=== PATIENT | male | born 1940 | race Caucasian/White ===

== ENCOUNTER 2016-06-21 13:55 | Inpatient (IN) | payer MEDICAID, OTHER ==
[~2016-06-21] VITALS: Ht 172.7 cm; Wt 81.0 kg
[~2016-06-21 13:55] MED LIST: ASPI81TA3 PO; ATOR20TA38 PO; Carvedilol PO; HYDR10TA36 PO; LISI-313 PO
[2016-06-21] MEDS ORDERED: FUROSEMIDE 40 MG INJ IV STA (17:22)
[2016-06-21] MEDS ORDERED: NITROGLYCERIN 2% 1 GM OINT PKT TD STA (17:22)
[2016-06-21] MEDS ORDERED: ASPIRIN 81 MG TAB PO STA (17:22)
[2016-06-21 18:06] LABS: ADD SCAN DIFF NO
[2016-06-21 18:08] LABS: BASOPHILS % 0.2 % (0.0-2.0); EOSINOPHILS # 0.1 10^3/ul (0.0-0.5); EOSINOPHILS % 1.7 % (0.0-7.0); HEMATOCRIT 37.3 % (42.0-52.0); HEMOGLOBIN 12.4 g/dl (14.0-18.0); LYMPHOCYTES # 1.2 10^3/ul (0.8-2.9); LYMPHOCYTES % 28.4 % (15.0-51.0); MEAN CORPUSCULAR HEMOGLOBIN 29.2 pg (29.0-33.0); MEAN CORPUSCULAR HGB CONC 33.2 g/dl (32.0-37.0); MEAN PLATELET VOLUME 9.2 fl (7.4-10.4); MONOCYTE # 0.5 10^3/ul (0.3-0.9); MONOCYTES % 11.3 % (0.0-11.0); NEUTROPHIL # 2.4 10^3/ul (1.6-7.5); NEUTROPHILS % 58.2 % (39.0-77.0); PLATELET COUNT 178 10^3/UL (140-415); RED BLOOD COUNT 4.24 10^6/ul (4.70-6.10); WHITE BLOOD COUNT 4.1 10^3/ul (4.8-10.8)
[2016-06-21 18:21] LABS: INR 0.99; PROTIME 13.1 Sec (12.2-14.2)
[2016-06-21 18:22] LABS: CHLORIDE 106 mmol/L (97-110); PARTIAL THROMBOPLASTIN TIME 26.7 Sec (25.0-35.0); SODIUM 144 mmol/L (135-144)
[2016-06-21 18:23] LABS: POTASSIUM 4.1 mmol/L (3.5-5.1)
--- NOTE | 2016-06-21 18:24 | RADRPT ---
PROCEDURE: XR Chest. CLINICAL INDICATION: Chest pain. TECHNIQUE: Single frontal view of the chest was obtained COMPARISON: 05/07/2015. FINDINGS: Cardiomegaly. Pulmonary vascular congestion and patchy air space disease at the mid lungs and lung bases. There is no pleural effusion or pneumothorax. IMPRESSION: Cardiomegaly and mild failure. RPTAT: [facility] Physician Kwasi Date Time Electronically viewed and signed by Carolann York Physician on 06/21/2016 18:24 RS/
[2016-06-21 18:25] LABS: CREATININE 0.83 mg/dl (0.61-1.24)
[2016-06-21 18:26] LABS: ANION GAP 16 (8-16); BLOOD UREA NITROGEN 16 mg/dl (7-20); CALCIUM 9.3 mg/dl (8.4-10.2); CARBON DIOXIDE 26 mmol/L (21-31); GLUCOSE 93 mg/dl (70-220)
--- NOTE | 2016-06-21 18:27 | ERA ---
ER Documentation Chief Complaint Date/Time DATE: 06/21/16 TIME: 18:24 Chief Complaint CHEST PAIN WITH SOB SINCE THIS AM HPI 75-year-old male history of cardiomyopathy, cardiac disease with an ejection fraction of 20-30% who presents with chest pain and shortness of breath. He states this morning he has noted lower extremity swelling, PND, orthopnea. Patient also describes mild chest pressure that is 2 out of 10 and nonradiating. No fevers chills or cough, no pleuritic pain. ROS All systems reviewed and are negative except as per history of present illness. Medications Home Meds Active Scripts Aspirin (Aspirin) 81 Mg Chew, 81 MG PO DAILY for 30 Days, TAB Prov:KASSIE LONG 05/09/15 Reported Medications Atorvastatin Calcium* (Atorvastatin Calcium*) 20 Mg Tablet, 20 MG PO QHS, #30 TAB 06/21/16 Carvedilol* (Carvedilol*) 3.125 Mg Tablet, 3.125 MG PO BID, #60 TAB 06/21/16 Tramadol Hcl* (Ultram*) 50 Mg Tablet, 50 MG PO Q6H Y for PAIN, TAB 06/21/16 Furosemide* (Furosemide*) 20 Mg Tablet, 20 MG PO DAILY, #60 TAB 06/21/16 Lorazepam* (Lorazepam*) 1 Mg Tablet, 1 MG PO HS, #30 TAB 06/21/16 Lisinopril* (Lisinopril*) 10 Mg Tablet, 10 MG PO DAILY, #30 TAB 06/21/16 Discontinued Scripts Lisinopril* (Lisinopril*) 5 Mg Tablet, 5 MG PO DAILY, #30 TAB Prov:KASSIE LONG 05/11/15 Hydralazine Hcl* (Apresoline*) 10 Mg Tab, 10 MG PO Q8 for 30 Days, TAB Prov:REGKASSIE PETTIT 05/09/15 Atorvastatin Calcium* (Atorvastatin Calcium*) 20 Mg Tab, 40 MG PO HS for 30 Days , TAB Prov:KASSIE LONG 05/09/15 [Carvedilol] 3.125 MG TAB No Conflict Check, 3.125 MG PO BID for 30 Days, TAB Prov:KASSIE LNOG 05/09/15 Allergies Allergies: Coded Allergies: No Known Allergy (Unverified , 06/21/16) PMhx/Soc History of Surgery: Yes (PT DOES NOT RECALL NAME OF PROCEDURE) Anesthesia Reaction: No Hx Neurological Disorder: No Hx Respiratory Disorders: No Hx Cardiac Disorders: Yes (STEMI, HTN) Hx Psychiatric Problems: No Hx Miscellaneous Medical Probl: No Hx Alcohol Use: No (DENIES) Hx Substance Use: No (DENIES) Hx Tobacco Use: No (DENIES) Smoking Status: Unknown if ever smoked FmHx Family History: No diabetes Physical Exam Vitals Vital Signs Date Time Temp Pulse Resp B/P Pulse Ox O2 Delivery O2 Flow Rate FiO2 06/21/16 14:00 Nasal Cannula 2 06/21/16 13:56 98.0 86 26 140/98 100 Physical Exam General: Well developed, well nourished, no acute distress Head: Normocephalic, atraumatic. Eyes: Pupils equally reactive, EOM intact ENT: Moist mucous membranes Neck: Supple, no lymphadenopathy Respiratory: Rales at the bases bilaterally without respiratory distress Cardiovascular: RRR, no murmurs, rubs, or gallops Abdominal: Soft, non-tender, non-distended, no peritoneal signs : Deferred MSK: Bilateral lower extremity pitting edema, no unilateral swelling, 5/5 strength Neurologic: Alert and oriented, moving all extremities, normal speech, no focal weakness, no cerebellar signs Skin: No rash Psych: Normal mood Result Diagram: 06/21/16 1745 06/21/16 1745 Results 24 hrs Laboratory Tests Test 06/21/16 17:45 Activated Partial Thromboplast Time 26.7Sec Anion Gap 16 B-Type Natriuretic Peptide 147PG/ML Basophils # 0.010^3/ul Basophils % 0.2% Blood Urea Nitrogen 16mg/dl Calcium Level 9.3mg/dl Carbon Dioxide Level 26mmol/L Chloride Level 106mmol/L Creatinine 0.83mg/dl Eosinophils # 0.110^3/ul Eosinophils % 1.7% Glucose Level 93mg/dl Hematocrit 37.3% Hemoglobin 12.4g/dl INR International Normalized Ratio 0.99 Lymphocytes # 1.210^3/ul Lymphocytes % 28.4% Mean Corpuscular Hemoglobin 29.2pg Mean Corpuscular Hemoglobin Concent 33.2g/dl Mean Corpuscular Volume 88.0fl Mean Platelet Volume 9.2fl Monocytes # 0.510^3/ul Monocytes % 11.3% Neutrophils # 2.410^3/ul Neutrophils % 58.2% Nucleated Red Blood Cells # 0.010^3/ul Nucleated Red Blood Cells % 0.0/100WBC Platelet Count 40428^3/UL Potassium Level 4.1mmol/L Prothrombin Time 13.1Sec Prothrombin Time Ratio 1.0 Red Blood Count 4.2410^6/ul Red Cell Distribution Width 13.0% Sodium Level 144mmol/L Troponin I < 0.012ng/ml White Blood Count 4.110^3/ul Current Medications Medications (Trade) Dose Ordered Sig/Rafiq Route PRN Reason Start Time Stop Time Status Last Admin Dose Admin Aspirin (Aspirin) 162 mg ONCE STAT PO 06/21/16 17:22 06/21/16 17:23 DC 06/21/16 17:54 Nitroglycerin (Nitroglycerin 2% Oint) 1 inch ONCE STAT TD 06/21/16 17:22 06/21/16 17:23 DC Furosemide (Lasix) 40 mg ONCE STAT IV 06/21/16 17:22 06/21/16 17:23 DC 06/21/16 17:55 Procedures/MDM EKG, MONITORS, & DIAGNOSTIC IMAGING: EKG: I reviewed and interpreted a 12-lead EKG. Rhythm: Normal sinus rhythm Ectopy: None Intervals: No abnormalities ST segments: No elevations or depressions T waves: No contiguous inversions Repeat EKG: EKG: I reviewed and interpreted a 12-lead EKG. Rhythm: Normal sinus rhythm Ectopy: None Intervals: No abnormalities ST segments: No elevations or depressions T waves: No contiguous inversions Chest x-ray: I reviewed and interpreted a 1 view of the chest Mediastinum: No enlargement Cardiac silhouette: cardiomegaly Airspace: Interstitial process consistent with pulmonary edema Bones: No evidence of fracture LAB INTERPRETATION: Negative troponin MEDICAL DECISION MAKING: The patient's history, physical exam and clinical presentation is concerning for possible cardiogenic etiology and acute coronary syndrome and likely decompensated congestive heart failure Based on the patient's clinical exam and history and risk factors, I have a much lower clinical concern for pulmonary embolism, acute aortic dissection, pneumothorax, pneumonia, cardiac tamponade HEART Score: 7 MACE Rate: 65 percent Shared Decision Making: We had a conversation regarding risk stratification, MACE rate, and the risks, benefits, alternatives of disposition planning options. Disposition planning: Patient is significantly high risk and will benefit from inpatient hospitalization. ER COURSE: The patient was given aspirin, nitro paste held given normal blood pressure no respiratory distress, Lasix provided. Patient will benefit from inpatient auscultation. Chest pain is controlled. I kept the patient and/or family informed of laboratory and diagnostic imaging results throughout the emergency room course. DISPOSITION PLAN: Telemetry admission for management of decompensated congestive heart failure CONSULTATION: Accepting care team and consultations: I discussed the current laboratory data, diagnostic imaging and emergency care provided. Admitting team: Dr. Mata Admitting team indication: Insurance directed Departure Diagnosis: Primary Impression: Acute CHF Qualified Code: I50.21 - Acute systolic congestive heart failure Additional Impression: Chest pain Qualified Code: R07.9 - Chest pain, unspecified type Condition: Stable LEXIE ROMANO MD Jun 21, 2016 18:27
[2016-06-21 18:35] LABS: B-TYPE NATRIURETIC PEPTIDE 147 PG/ML (0-125)
[2016-06-21] MEDS ORDERED: LISI10TA2 PO (18:35)
[2016-06-21] MEDS ORDERED: FURO20TA3 PO (18:37)
[2016-06-21] MEDS ORDERED: LORA1TAB PO (18:37)
[2016-06-21] MEDS ORDERED: TRAM-40 PO (18:38)
[2016-06-21] MEDS ORDERED: CARV3.1260 PO (18:38)
[2016-06-21] MEDS ORDERED: ATOR20TA38 PO (18:39)
[2016-06-21 18:59] LABS: TROPONIN-I < 0.012 ng/ml (0.00-0.12)
[2016-06-21] MEDS ORDERED: ONDANSETRON 4 MG INJ IV PRN ×2 (19:30→20:00)
[2016-06-21] MEDS ORDERED: ACETAMINOPHEN 325 MG TAB PO PRN ×2 (19:30→20:00)
[2016-06-21] MEDS ORDERED: LORAZEPAM 2 MG INJ IV PRN (20:00)
[2016-06-21] MEDS ORDERED: morphine 2 MG INJ IV PRN (20:00)
[2016-06-21] MEDS ORDERED: NITROGLYCERIN (SL) 0.4 MG TAB SL PRN (20:00)
[2016-06-21] MEDS ORDERED: hydrALAzine 20 MG INJ IV PRN (20:00)
[2016-06-21] MEDS ORDERED: MAGNESIUM HYDROXIDE 30ML CUP PO PRN (20:00)
[2016-06-21] MEDS ORDERED: DOCUSATE SODIUM 100 MG CAP PO PRN (20:00)
[2016-06-21] MEDS ORDERED: ALBUTEROL/IPRATROPIUM (NEB) 3 ML AMP HHN PRN (20:00)
[2016-06-21] MEDS ORDERED: NA PHOSPHATE/BIPHOS 133 ML ENEMA PR PRN (20:00)
[2016-06-21] MEDS ORDERED: NACL 0.9% 3 ML SYG IV SCH (20:00)
[2016-06-21] MEDS ORDERED: HYDROCODONE/APAP (5/325) TAB PO PRN (20:00)
[2016-06-21] MEDS ORDERED: traMADol 50 MG TAB PO PRN (20:00)
[2016-06-21 20:34] LABS: CREATINE KINASE 55 IU/L (23-200)
[2016-06-21 20:46] LABS: CK-MB 0.63 ng/ml (0.0-2.4)
[2016-06-21 20:49] LABS: TROPONIN-I < 0.012 ng/ml (0.00-0.12)
[2016-06-21] MEDS: LORAZEPAM 1 MG TAB PO SCH (21:00)
[2016-06-21] MEDS: ATORVASTATIN 20 MG TAB PO SCH (22:00)
[2016-06-21] MEDS: HEPARIN 5,000 UNIT/0.5 ML SYG SC SCH (22:01)
[2016-06-22] VITALS (13 sets, daily range): BP systolic 84–145; BP diastolic 48–71; PULSE 50–72; RESP 18–20; TEMP 98
[2016-06-22 03:51] LABS: CREATINE KINASE 48 IU/L (23-200)
[2016-06-22 04:06] LABS: CK-MB 0.49 ng/ml (0.0-2.4); TROPONIN-I < 0.012 ng/ml (0.00-0.12)
[2016-06-22] MEDS: PANTOPRAZOLE (EC) 40 MG TAB PO SCH ×2 (05:36→06:00)
[2016-06-22] MEDS ORDERED: FUROSEMIDE 20 MG TAB PO SCH (06:00)
[2016-06-22 08:02] LABS: CREATINE KINASE 44 IU/L (23-200)
[2016-06-22 08:09] LABS: CHOL/HDL RATIO 4.6 RATIO
[2016-06-22 08:11] LABS: CK-MB 0.53 ng/ml (0.0-2.4); TROPONIN-I < 0.012 ng/ml (0.00-0.12)
[2016-06-22 08:52] LABS: THYROID STIMULATING HORMONE 0.692 MIU/L (0.465-4.680)
[2016-06-22 09:07] LABS: ADD SCAN DIFF NO
[2016-06-22 09:30] LABS: BASOPHILS % 0.6 % (0.0-2.0); EOSINOPHILS # 0.1 10^3/ul (0.0-0.5); EOSINOPHILS % 2.5 % (0.0-7.0); HEMATOCRIT 38.2 % (42.0-52.0); HEMOGLOBIN 12.7 g/dl (14.0-18.0); LYMPHOCYTES # 1.1 10^3/ul (0.8-2.9); MEAN CORPUSCULAR HEMOGLOBIN 29.5 pg (29.0-33.0); MEAN CORPUSCULAR HGB CONC 33.2 g/dl (32.0-37.0); MEAN CORPUSCULAR VOLUME 88.8 fl (82.0-101.0); MEAN PLATELET VOLUME 9.5 fl (7.4-10.4); MONOCYTE # 0.4 10^3/ul (0.3-0.9); MONOCYTES % 10.9 % (0.0-11.0); NEUTROPHIL # 1.7 10^3/ul (1.6-7.5); NEUTROPHILS % 52.7 % (39.0-77.0); PLATELET COUNT 172 10^3/UL (140-415); RED CELL DISTRIBUTION WIDTH 13.2 % (11.5-14.5); WHITE BLOOD COUNT 3.2 10^3/ul (4.8-10.8)
[2016-06-22] MEDS: ASPIRIN (EC) 325 MG TAB PO SCH (09:34)
[2016-06-22 09:35] LABS: CREATININE 0.74 mg/dl (0.61-1.24)
[2016-06-22] MEDS: LISINOPRIL 10 MG TAB PO SCH (09:35)
[2016-06-22 09:36] LABS: CALCIUM 8.9 mg/dl (8.4-10.2); MAGNESIUM 2.1 mg/dl (1.7-2.5); PHOSPHORUS 3.2 mg/dl (2.5-4.9)
[2016-06-22] MEDS: HEPARIN 5,000 UNIT/0.5 ML SYG SC SCH ×2 (09:39→21:20)
[2016-06-22] MEDS ORDERED: SENNA/DOCUSATE NA (8.6MG/50MG) TAB PO PRN (12:00)
[2016-06-22] MEDS: FUROSEMIDE 40 MG INJ IV SCH ×2 (12:51→20:00)
--- NOTE | 2016-06-22 13:24 | PN ---
Date/Time of Note Date/Time of Note DATE: 06/22/16 TIME: 13:21 Assessment/Plan VTE Prophylaxis VTE Prophylaxis Intervention: LMWH Lines/Catheters IV [facility] Urinary Cath still in place: No Assessment/Plan Chief Complaint/Hosp Course A/P 1- Ac on Chr decompensated systolic chf; stable, cont lasix. 2- Chr ischemic cardiomyopathy 3- Chr CAD/ mid lad- chr occlusion. medical management 4- Leucopenia, etio? Problems: Subjective 24 Hr Interval Summary Free Text/Dictation s- feels better. less edema/dyspnea. stated that he's regular with his meds/ diet. Exam/Review of Systems Vital Signs Vitals Vital Signs Date Time Temp Pulse Resp B/P Pulse Ox O2 Delivery O2 Flow Rate FiO2 06/22/16 12:23 60 06/22/16 12:01 98.2 20 113/64 99 06/22/16 03:05 Room Air 06/21/16 14:00 2 Exam Respiratory: clear to auscultation Cardiovascular: regular rate and rhythm Gastrointestinal: non-tender, soft Results Result Diagram: 06/22/16 0700 06/22/16 0700 Results 24 hrs Laboratory Tests Test 06/21/16 17:45 06/21/16 20:12 06/22/16 03:15 06/22/16 07:00 Activated Partial Thromboplast Time 26.7 Anion Gap 16 18 H B-Type Natriuretic Peptide 147 H Basophils # 0.0 0.0 Basophils % 0.2 0.6 Blood Urea Nitrogen 16 15 Calcium Level 9.3 8.9 Carbon Dioxide Level 26 25 Chloride Level 106 104 Creatinine 0.83 0.74 Eosinophils # 0.1 0.1 Eosinophils % 1.7 2.5 Glucose Level 93 92 Hematocrit 37.3 L 38.2 L Hemoglobin 12.4 L 12.7 L INR International Normalized Ratio 0.99 Lymphocytes # 1.2 1.1 Lymphocytes % 28.4 33.0 Mean Corpuscular Hemoglobin 29.2 29.5 Mean Corpuscular Hemoglobin Concent 33.2 33.2 Mean Corpuscular Volume 88.0 88.8 Mean Platelet Volume 9.2 # 9.5 Monocytes # 0.5 0.4 Monocytes % 11.3 H 10.9 Neutrophils # 2.4 1.7 Neutrophils % 58.2 52.7 Nucleated Red Blood Cells # 0.0 0.0 Nucleated Red Blood Cells % 0.0 0.0 Platelet Count 178 172 Potassium Level 4.1 4.0 Prothrombin Time 13.1 Prothrombin Time Ratio 1.0 Red Blood Count 4.24 L 4.30 L Red Cell Distribution Width 13.0 13.2 Sodium Level 144 143 Troponin I < 0.012 < 0.012 < 0.012 < 0.012 White Blood Count 4.1 L 3.2 #L Creatine Kinase 55 48 44 Creatine Kinase Index 1.1 1.0 1.2 Creatinine Kinase MB (Mass) 0.63 0.49 0.53 Free Thyroxine 1.16 Cholesterol Level 187 Cholesterol/HDL Ratio 4.6 HDL Cholesterol 40 Hemoglobin A1c 5.2 LDL Cholesterol, Calculated 110 Magnesium Level 2.1 Phosphorus Level 3.2 Thyroid Stimulating Hormone (TSH) 0.692 Triglycerides Level 186 H Medications Medications Current Medications Ondansetron HCl (Zofran Inj) 4 mg Q6H PRN IV NAUSEA AND/OR VOMITING; Start at 20:00 Acetaminophen (Tylenol Tab) 650 mg Q6H PRN PO PAIN LEVEL 1-3 OR FEVER; Start at 20:00 Acetaminophen/ Hydrocodone Bitart ([place] (5/325)) 1 tab Q6H PRN PO MODERATE PAIN LEVEL 4-6; Start 06/21/16 at 20:00 Morphine Sulfate (morphine) 2 mg Q4H PRN IV SEVERE PAIN LEVEL 7-10; Start 06/21 at 20:00 Docusate Sodium (Colace) 100 mg Q12H PRN PO CONSTIPATION; Start 06/21/16 at 20: 00 Magnesium Hydroxide (Milk Of Mag) 30 ml DAILY PRN PO CONSTIPATION; Start at 20:00 Sodium Biphosphate/ Sodium Phosphate (Fleet Enema) 133 ml DAILY PRN [place] CONSTIPATION; Start 06/21/16 at 20:00 Pantoprazole (Protonix Tab) 40 mg DAILY@06 PO ; Start 06/22/16 at 06:00 Heparin Sodium (Porcine) (Heparin (5000 Units/0.5 ml)) 5,000 unit Q12 SC Last administered on 06/22/16t 09:39; Admin Dose 5,000 UNIT; Start 06/21/16 at 21:00 Lorazepam (Ativan) 0.5 mg Q6H PRN IV ANXIETY; Start 06/21/16 at 20:00 Hydralazine HCl (Apresoline) 10 mg Q6H PRN IV ELEVATED BLOOD PRESSURE; Start at 20:00 Clonidine (Catapres) 0.1 mg Q6H PRN PO ELEVATED BLOOD PRESSURE; Start 06/21/16 at 20:00 Nitroglycerin (Nitroglycerin (Sl Tab) 0.4 Mg) 1 tab Q5M PRN SL ANGINA; Start at 20:00 Aspirin (Ecotrin) 325 mg DAILY PO Last administered on 06/22/16 09:34; Admin Dose 325 MG; Start 06/22/16 at 09:00 Atorvastatin Calcium (Lipitor) 20 mg QHS PO Last administered on 06/21/16 22: 00; Admin Dose 20 MG; Start 06/21/16 at 21:00 Carvedilol (Coreg) 3.125 mg BID PO Last administered on 06/22/16 09:35; Admin Dose 3.125 MG; Start 06/21/16 at 21:00 Lisinopril (Zestril) 10 mg DAILY PO Last administered on 06/22/16 09:35; Admin Dose 10 MG; Start 06/22/16 at 09:00 Lorazepam (Ativan) 1 mg HS PO ; Start 06/21/16 at 21:00 Tramadol HCl (Ultram) 50 mg Q6H PRN PO PAIN; Start 06/21/16 at 20:00 Thiamine HCl (Vitamin B1) 100 mg DAILY PO ; Start 06/22/16 at 13:30 Senna/Docusate Sodium (Senokot-S) 2 tab HS PRN PO CONSTIPATION; Start 06/22/16 at 12:00 LARISA MADERA MD Jun 22, 2016 13:24
[2016-06-22] MEDS: THIAMINE 100 MG TAB PO SCH (16:14)
[2016-06-22] MEDS ORDERED: SPIRONOLACTONE 25 MG TAB PO ONE (18:47)
--- NOTE | 2016-06-22 18:49 | CONS ---
Date/Time of Note Date/Time of Note DATE: 06/22/16 TIME: 18:42 Assessment/Plan Assessment/Plan Additional Assessment/Plan Acute decompensated systolic congestive heart failure Severe cardiomyopathy Coronary artery disease Hypertension Dyslipidemia -Patient with improvement in symptoms since initiation of IV diuretics. Serial cardiac enzymes have remained unremarkable. Continue DAWIT inhibitor, increase beta-dipesh as blood pressure permits, add Aldactone as renal function and electrolytes permit. Maintain potassium above 4.0 and magnesium above 2.0. Consultation Date/Type/Reason Admit Date/Time Jun 21, 2016 at 19:26 Type of Consultation: cv Reason for Consultation Shortness of breath Hx of Present Illness Patient is a 75-year-old male with past medical history of congestive heart failure, coronary artery disease who presents with worsening shortness of breath over the past week. Symptoms are worse with exertion and lying down flat and improved with rest. He also gets intermittent chest discomfort at times. Chest discomfort is not associated with activity. He denies any fevers but has been having chills and a wet cough. He denies any dizziness, lightheadedness or abdominal pain. He has been having mild lower extremity edema which has since improved. Shortness of breath has improved since admission. He denies medication noncompliance 12 point review of systems was performed with all pertinent positives and negatives mentioned above and all else is negative Past Medical History Medical History: congestive heart failure, coronary artery disease, high cholesterol, hypertension Family History Significant Family History: no pertinent family hx Social History Alcohol Use: occasionally Smoking Status: Never smoker Exam/Review of Systems Vital Signs Vitals Vital Signs Date Time Temp Pulse Resp B/P Pulse Ox O2 Delivery O2 Flow Rate FiO2 06/22/16 16:17 72 06/22/16 15:51 98.4 20 91/55 99 06/22/16 03:05 Room Air 06/21/16 14:00 2 Exam No apparent distress Constitutional: alert, oriented, well developed Head: normocephalic Neck: supple Respiratory: other (Coarse breath sounds bilaterally, no wheezing) Cardiovascular: other (S1-S2 heard), regular rate and rhythm, systolic murmur Gastrointestinal: bowel sounds, non-tender, other (No guarding), soft Extremities: edema (Trace), other (No cyanosis) Results Result Diagram: 06/22/16 0700 06/22/16 0700 Results 24 hrs Laboratory Tests Test 06/21/16 20:12 06/22/16 03:15 06/22/16 07:00 Creatine Kinase 55 48 44 Creatine Kinase Index 1.1 1.0 1.2 Creatinine Kinase MB (Mass) 0.63 0.49 0.53 Free Thyroxine 1.16 Troponin I < 0.012 < 0.012 < 0.012 Anion Gap 18 H Basophils # 0.0 Basophils % 0.6 Blood Urea Nitrogen 15 Calcium Level 8.9 Carbon Dioxide Level 25 Chloride Level 104 Cholesterol Level 187 Cholesterol/HDL Ratio 4.6 Creatinine 0.74 Eosinophils # 0.1 Eosinophils % 2.5 Glucose Level 92 HDL Cholesterol 40 Hematocrit 38.2 L Hemoglobin 12.7 L Hemoglobin A1c 5.2 LDL Cholesterol, Calculated 110 Lymphocytes # 1.1 Lymphocytes % 33.0 Magnesium Level 2.1 Mean Corpuscular Hemoglobin 29.5 Mean Corpuscular Hemoglobin Concent 33.2 Mean Corpuscular Volume 88.8 Mean Platelet Volume 9.5 Monocytes # 0.4 Monocytes % 10.9 Neutrophils # 1.7 Neutrophils % 52.7 Nucleated Red Blood Cells # 0.0 Nucleated Red Blood Cells % 0.0 Phosphorus Level 3.2 Platelet Count 172 Potassium Level 4.0 Red Blood Count 4.30 L Red Cell Distribution Width 13.2 Sodium Level 143 Thyroid Stimulating Hormone (TSH) 0.692 Triglycerides Level 186 H White Blood Count 3.2 #L Medications Medications Current Medications Ondansetron HCl (Zofran Inj) 4 mg Q6H PRN IV NAUSEA AND/OR VOMITING; Start at 20:00 Acetaminophen (Tylenol Tab) 650 mg Q6H PRN PO PAIN LEVEL 1-3 OR FEVER; Start at 20:00 Acetaminophen/ Hydrocodone Bitart ([place] (5/325)) 1 tab Q6H PRN PO MODERATE PAIN LEVEL 4-6; Start 06/21/16 at 20:00 Morphine Sulfate (morphine) 2 mg Q4H PRN IV SEVERE PAIN LEVEL 7-10; Start 06/21 at 20:00 Docusate Sodium (Colace) 100 mg Q12H PRN PO CONSTIPATION; Start 06/21/16 at 20: 00 Magnesium Hydroxide (Milk Of Mag) 30 ml DAILY PRN PO CONSTIPATION; Start at 20:00 Sodium Biphosphate/ Sodium Phosphate (Fleet Enema) 133 ml DAILY PRN [place] CONSTIPATION; Start 06/21/16 at 20:00 Pantoprazole (Protonix Tab) 40 mg DAILY@06 PO ; Start 06/22/16 at 06:00 Heparin Sodium (Porcine) (Heparin (5000 Units/0.5 ml)) 5,000 unit Q12 SC Last administered on 06/22/16 09:39; Admin Dose 5,000 UNIT; Start 06/21/16 at 21:00 Lorazepam (Ativan) 0.5 mg Q6H PRN IV ANXIETY; Start 06/21/16 at 20:00 Hydralazine HCl (Apresoline) 10 mg Q6H PRN IV ELEVATED BLOOD PRESSURE; Start at 20:00 Clonidine (Catapres) 0.1 mg Q6H PRN PO ELEVATED BLOOD PRESSURE; Start 06/21/16 at 20:00 Nitroglycerin (Nitroglycerin (Sl Tab) 0.4 Mg) 1 tab Q5M PRN SL ANGINA; Start at 20:00 Aspirin (Ecotrin) 325 mg DAILY PO Last administered on 06/22/16 09:34; Admin Dose 325 MG; Start 06/22/16 at 09:00 Atorvastatin Calcium (Lipitor) 20 mg QHS PO Last administered on 06/21/16 22: 00; Admin Dose 20 MG; Start 06/21/16 at 21:00 Carvedilol (Coreg) 3.125 mg BID PO Last administered on 06/22/16 09:35; Admin Dose 3.125 MG; Start 06/21/16 at 21:00 Lisinopril (Zestril) 10 mg DAILY PO Last administered on 06/22/16 09:35; Admin Dose 10 MG; Start 06/22/16 at 09:00 Lorazepam (Ativan) 1 mg HS PO ; Start 06/21/16 at 21:00 Tramadol HCl (Ultram) 50 mg Q6H PRN PO PAIN; Start 06/21/16 at 20:00 Thiamine HCl (Vitamin B1) 100 mg DAILY PO Last administered on 06/22/16 16:14 ; Admin Dose 100 MG; Start 06/22/16 at 13:30 Senna/Docusate Sodium (Senokot-S) 2 tab HS PRN PO CONSTIPATION; Start 06/22/16 at 12:00 Procedures Procedures ECG demonstrates sinus rhythm at 67 bpm, septal Q waves, nonspecific STT wave abnormalities Familia Sy DO Jun 22, 2016 18:49
[2016-06-22] MEDS: LORAZEPAM 1 MG TAB PO SCH (21:00)
[2016-06-22] MEDS: ATORVASTATIN 20 MG TAB PO SCH (21:21)
[2016-06-23] VITALS (14 sets, daily range): BP systolic 86–110; BP diastolic 50–63; PULSE 54–67; RESP 16–20
--- NOTE | 2016-06-23 00:52 | HP ---
DATE OF ADMISSION: 06/21/2016 [facility]IMARY SPECIALIST PHYSICIANS: Dr. Patterson PRIMARY CARE PHYSICIAN: Dr. Castillo Mauricio CHIEF COMPLAINT ON ADMISSION: Chest pressure, shortness of breath. HISTORY OF PRESENT ILLNESS: This is a 75-year-old male with known history of ischemic cardiomyopath y, coronary artery disease with 100% chronic total occlusion of the mid left anterior descending art samuel and ejection fraction around 25% to 30%, who apparently had been going to Dr. Patterson as an outpa tient and presented to the emergency department last night with complaint of shortness of breath and chest pressure. The patient reports that he has been having these episodes on and off, but yesterd ay, it was worsening and that this episode has been persisting for the past 2 days. During these ep isodes, he has chest pressure, substernal, anterior, and also radiating to the back. He has shortne ss of breath including dyspnea on exertion and orthopnea. His exercise tolerance has decreased. He denies any nausea or vomiting. He is not on home oxygen. Yesterday in the emergency department, aislinn shahid had a chest x-ray done, which did show signs of volume overload. The patient reports that he has been compliant with his outpatient regimen that includes low dose Lasix daily. He reports occasiona l lower extremity edema, although currently he is pretty asymptomatic when it comes to edema of the lower extremities. He reports occasional palpitations. According to the notes from last year when the patient was admitted with chest pain and did require angiogram at that time, the recommendation was aggressive medical management and risk factor modification and, if no improvement after a period of 3 months of optimal medical management, there was some recommendation for ICD placement. The pa tient will be seen by Dr. Sy, who works with Dr. Patterson, while inpatient. The patient denies fe vers, chills, nausea, vomiting, or neurological deficits. No gastrointestinal complaints. ALLERGIES: NO KNOWN ALLERGIES. PAST MEDICAL HISTORY: 1. Coronary artery disease with critical 1 vessel coronary artery disease and 100% chronic total oc clusion of the mid LAD, not amenable to PCI. 2. Ischemic cardiomyopathy. 3. Congestive heart failure, systolic dysfunction with ejection fraction 25% to 30%, chronic. 4. Hypertension. 5. Hyperlipidemia. PAST SURGICAL HISTORY: Status post cholecystectomy and exploratory laparotomy. From what the patie nt is describing, this was remote. SOCIAL HISTORY: The patient denies tobacco use and insists that he never smoked. He does acknowled ge he drinks alcohol occasionally. OUTPATIENT MEDICATIONS: 1. Tramadol 50 mg p.o. daily. 2. Lorazepam 1 mg p.o. daily. 3. Furosemide 20 mg p.o. daily. 4. Aspirin 81 mg p.o. daily. 5. Lipitor 20 mg p.o. daily. 6. Lisinopril 10 mg p.o. daily. 7. Carvedilol 3.125 mg p.o. b.i.d. PHYSICAL EXAMINATION: VITAL SIGNS: Temperature is 98.4, heart rate of 70 sinus rhythm, has been varying between 57 and 86 , blood pressure 91/58. The patient is satting 99% currently on 2 liters nasal cannula. Respirator y rate of 20. GENERAL: He is alert and oriented x4, very pleasant gentleman. He is primarily [place] and [place] n speaking only. HEENT: Pupils are equally round and reactive to light. Extraocular muscles are intact. Anicteric sclerae. NECK: No JVD, no thyromegaly noted. HEART: Regular rate and rhythm. No rubs or gallops. It is very difficult to detect any murmurs. LUNGS: Clear to auscultation bilaterally with good air movement. ABDOMEN: Soft, nontender, slightly obese. He has a mid abdominal vertical scar. Bowel sounds are present. EXTREMITIES: No edema, clubbing, or cyanosis at this time. NEUROLOGIC: Grossly intact. LABORATORY DATA: White blood cell count is 3.2, hemoglobin 12.7, hematocrit 38.2, platelet count of 172. Chemistry with a sodium of 143, potassium 4.0, chloride 104, bicarbonate 25, BUN 15, creatini ne 0.74, glucose of 92. A1c of 5.2. Calcium 8.9, phosphorus 3.2, magnesium 2.1. Cardiac enzymes a re negative x4. Fasting lipid panel with triglyceride of 186. BNP is 1427. Free T4 of 1.16, TSH i s 0.635. LFTs will be checked. RADIOLOGICAL DATA: Chest x-ray showed cardiomegaly and mild pulmonary edema. ASSESSMENT AND PLAN: This is a 75-year-old male with: 1. Shortness of breath, chest pressure, likely all related to congestive heart failure and ischemic cardiomyopathy with mild exacerbation. I agree with Andreix 40 mg IV x1 in the emergency department. Would benefit from a high dose of Lasix 40 mg p.o. b.i.d. We will monitor his potassium and magne sium and replete as needed. Dr. Sy will be seeing the patient. Repeat echocardiogram has been ordered. He has been ruled out for acute coronary syndrome. We will monitor his rhythm on telemetr y to see if he has any indications for actually ICD placement sooner rather than later. Continue ca rdiac medication including aspirin. 2. Coronary artery disease. Continue cardiac medications including carvedilol, lisinopril, Lipitor , and aspirin. 3. Hyperlipidemia. Continue Lipitor. We will check liver function testing. 4. Hypertension. Continue lisinopril as tolerated. We may need to titrate it down in order to max imize his carvedilol if needed for heart rate control. For now, his heart rate has been stable on l ow dose carvedilol. 5. Prophylaxis: Pepcid for gastrointestinal prophylaxis. Heparin subq for deep vein thrombosis pr ophylaxis. DISPOSITION: Cardiology evaluation. Depending on the course of action, the patient may be discharg ed in the next 24 hours if he has diuresed well. Dictated By: ANDREE BESS/IRIS Conf#: [id number] DID#: [id number] CC: BENJAMIN SMITH;*EndCC*
[2016-06-23] MEDS: PANTOPRAZOLE (EC) 40 MG TAB PO SCH ×2 (04:57→06:37)
[2016-06-23] MEDS ORDERED: SOD CHLORIDE 0.9% 500 ML IV ONE (05:00)
[2016-06-23] MEDS ORDERED: SPIRONOLACTONE 25 MG TAB PO SCH (06:00)
[2016-06-23 07:38] LABS: HAAIG REFLEX REFLEX FILED
[2016-06-23 08:10] LABS: POTASSIUM 3.8 mmol/L (3.5-5.1)
[2016-06-23 08:12] LABS: ADD SCAN DIFF NO; CREATININE 0.95 mg/dl (0.61-1.24)
[2016-06-23 08:13] LABS: ALBUMIN/GLOBULIN RATIO 1.48; BILIRUBIN,INDIRECT 0.6 mg/dl (0-1.1); BILIRUBIN,TOTAL 0.6 mg/dl (0.2-1.3); PHOSPHORUS 3.7 mg/dl (2.5-4.9); TOTAL PROTEIN 6.7 g/dl (6.1-8.1)
[2016-06-23 08:14] LABS: CALCIUM 8.6 mg/dl (8.4-10.2)
[2016-06-23 08:24] LABS: BASOPHILS % 0.4 % (0.0-2.0); EOSINOPHILS # 0.1 10^3/ul (0.0-0.5); EOSINOPHILS % 1.5 % (0.0-7.0); HEMATOCRIT 37.3 % (42.0-52.0); HEMOGLOBIN 12.1 g/dl (14.0-18.0); LYMPHOCYTES # 1.3 10^3/ul (0.8-2.9); MEAN CORPUSCULAR HEMOGLOBIN 29.1 pg (29.0-33.0); MEAN CORPUSCULAR HGB CONC 32.4 g/dl (32.0-37.0); MEAN CORPUSCULAR VOLUME 89.7 fl (82.0-101.0); MEAN PLATELET VOLUME 9.5 fl (7.4-10.4); MONOCYTE # 0.5 10^3/ul (0.3-0.9); MONOCYTES % 9.7 % (0.0-11.0); NEUTROPHIL # 2.9 10^3/ul (1.6-7.5); NEUTROPHILS % 61.2 % (39.0-77.0); PLATELET COUNT 164 10^3/UL (140-415); RED BLOOD COUNT 4.16 10^6/ul (4.70-6.10); RED CELL DISTRIBUTION WIDTH 13.1 % (11.5-14.5); WHITE BLOOD COUNT 4.7 10^3/ul (4.8-10.8)
[2016-06-23 09:27] LABS: POTASSIUM 3.8 mmol/L (3.5-5.1)
[2016-06-23 09:30] LABS: CREATININE 0.95 mg/dl (0.61-1.24)
[2016-06-23 09:31] LABS: CALCIUM 8.7 mg/dl (8.4-10.2)
[2016-06-23] MEDS: ASPIRIN (EC) 325 MG TAB PO SCH (10:17)
[2016-06-23] MEDS: THIAMINE 100 MG TAB PO SCH (10:17)
[2016-06-23] MEDS: LISINOPRIL 10 MG TAB PO SCH (10:17)
[2016-06-23] MEDS: HEPARIN 5,000 UNIT/0.5 ML SYG SC SCH ×2 (10:18→20:22)
[2016-06-23] MEDS ORDERED: POTASSIUM CHLORIDE (SR) 20 MEQ TAB PO STA ×2 (11:07→16:53)
--- NOTE | 2016-06-23 13:27 | PN ---
Date/Time of Note Date/Time of Note DATE: 06/23/16 TIME: 12:56 Assessment/Plan VTE Prophylaxis VTE Prophylaxis Intervention: heparin Lines/Catheters IV C[facility]ter Type (from [facility] Saline Lock Urinary Cath still in place: No Assessment/Plan Assessment/Plan 75-year-old male with: 1. Shortness of breath, chest pressure, likely all related to congestive heart failure and ischemic cardiomyopathy with mild exacerbation. Patient not able to tolerate diuretics currently due to low BP Change Lasix to 40 mg po bid and Aldactone added but not tolerated, replete K today. F/u repeat echo result Sinus rhythm on telemetry with episode mild bradycardia Continue cardiac medication as tolerated and also continue aspirin. 2. Coronary artery disease. Continue cardiac medications including carvedilol , lisinopril, Lipitor, and aspirin. But most held overnight due to low BP. 3. Hyperlipidemia. Continue Lipitor. 4. Hypertension. Patient with actual low BP limiting cardiac meds being given by RN.. Prophylaxis: Pepcid for gastrointestinal prophylaxis. Heparin subq for deep vein thrombosis prophylaxis. DISPOSITION: Cardiology following. Depending on the course of action, the patient may be discharged in the next 24 hours if BP stable and tolerating meds. Subjective 24 Hr Interval Summary Free Text/Dictation Patient feels OK Still with some orthopnea Hypotensive overnight, requiring NS bolus and all meds Coreg and Diuretics held today due to borderline low BP Exam/Review of Systems Vital Signs Vitals Vital Signs Date Time Temp Pulse Resp B/P Pulse Ox O2 Delivery O2 Flow Rate FiO2 06/23/16 12:02 97.9 57 16 86/50 99 06/22/16 03:05 Room Air 06/21/16 14:00 2 Intake and Output 06/22/16 06/22/16 06/23/16 15:00 23:00 07:00 Intake Total 1000 ml 450 ml Output Total 900 ml Balance 100 ml 450 ml Exam Constitutional: alert, oriented, well developed Respiratory: clear to auscultation, normal air movement Cardiovascular: nl pulses, other (episode of sinus wilder last night ), regular rate and rhythm Musculoskeletal: nl extremities to inspection Extremities: normal pulses 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, nl mental status, nl speech, nl strength Results Result Diagram: 06/23/16 0710 06/23/16 0710 Results 24 hrs Laboratory Tests Test 06/23/16 07:10 Alanine Aminotransferase (ALT/SGPT) 25 Albumin 4.0 Albumin/Globulin Ratio 1.48 Alkaline Phosphatase 61 Anion Gap 15 Aspartate Amino Transf (AST/SGOT) 18 Basophils # 0.0 Basophils % 0.4 Blood Urea Nitrogen 22 H Calcium Level 8.6 Carbon Dioxide Level 28 Chloride Level 102 Creatinine 0.95 Direct Bilirubin 0.00 Eosinophils # 0.1 Eosinophils % 1.5 Globulin 2.70 Glucose Level 89 Hematocrit 37.3 L Hemoglobin 12.1 L Hepatitis B Core Total Antibody Pending Hepatitis B Surface Antigen Pending Hepatitis C Antibody NEGATIVE Indirect Bilirubin 0.6 Lymphocytes # 1.3 Lymphocytes % 27.0 Magnesium Level 2.0 Mean Corpuscular Hemoglobin 29.1 Mean Corpuscular Hemoglobin Concent 32.4 Mean Corpuscular Volume 89.7 Mean Platelet Volume 9.5 Monocytes # 0.5 Monocytes % 9.7 Neutrophils # 2.9 Neutrophils % 61.2 Nucleated Red Blood Cells # 0.0 Nucleated Red Blood Cells % 0.0 Phosphorus Level 3.7 Platelet Count 164 Potassium Level 3.8 Red Blood Count 4.16 L Red Cell Distribution Width 13.1 Sodium Level 141 Total Bilirubin 0.6 Total Protein 6.7 White Blood Count 4.7 #L Medications Medications Current Medications Ondansetron HCl (Zofran Inj) 4 mg Q6H PRN IV NAUSEA AND/OR VOMITING; Start at 20:00 Acetaminophen (Tylenol Tab) 650 mg Q6H PRN PO PAIN LEVEL 1-3 OR FEVER; Start at 20:00 Acetaminophen/ Hydrocodone Bitart ([place] (5/325)) 1 tab Q6H PRN PO MODERATE PAIN LEVEL 4-6; Start 06/21/16 at 20:00 Morphine Sulfate (morphine) 2 mg Q4H PRN IV SEVERE PAIN LEVEL 7-10; Start 06/21 at 20:00 Docusate Sodium (Colace) 100 mg Q12H PRN PO CONSTIPATION; Start 06/21/16 at 20: 00 Magnesium Hydroxide (Milk Of Mag) 30 ml DAILY PRN PO CONSTIPATION; Start at 20:00 Sodium Biphosphate/ Sodium Phosphate (Fleet Enema) [address] CONSTIPATION; Start 06/21/16 at 20:00 Pantoprazole (Protonix Tab) 40 mg DAILY@06 PO Last administered on 06/23/16 06 :37; Admin Dose 40 MG; Start 06/22/16 at 06:00 Heparin Sodium (Porcine) (Heparin (5000 Units/0.5 ml)) 5,000 unit Q12 SC Last administered on 06/23/16 10:18; Admin Dose 5,000 UNIT; Start 06/21/16 at 21:00 Lorazepam (Ativan) 0.5 mg Q6H PRN IV ANXIETY; Start 06/21/16 at 20:00 Hydralazine HCl (Apresoline) 10 mg Q6H PRN IV ELEVATED BLOOD PRESSURE; Start at 20:00 Clonidine (Catapres) 0.1 mg Q6H PRN PO ELEVATED BLOOD PRESSURE; Start 06/21/16 at 20:00 Nitroglycerin (Nitroglycerin (Sl Tab) 0.4 Mg) 1 tab Q5M PRN SL ANGINA; Start at 20:00 Aspirin (Ecotrin) 325 mg DAILY PO Last administered on 06/23/16 10:17; Admin Dose 325 MG; Start 06/22/16 at 09:00 Atorvastatin Calcium (Lipitor) 20 mg QHS PO Last administered on 06/22/16 21: 21; Admin Dose 20 MG; Start 06/21/16 at 21:00 Carvedilol (Coreg) 3.125 mg BID PO Last administered on 06/22/16 09:35; Admin Dose 3.125 MG; Start 06/21/16 at 21:00; Status Future hold Lisinopril (Zestril) 10 mg DAILY PO Last administered on 06/23/16 10:17; Admin Dose 10 MG; Start 06/22/16 at 09:00 Lorazepam (Ativan) 1 mg HS PO ; Start 06/21/16 at 21:00 Tramadol HCl (Ultram) 50 mg Q6H PRN PO PAIN; Start 06/21/16 at 20:00 Thiamine HCl (Vitamin B1) 100 mg DAILY PO Last administered on 06/23/16 10:17 ; Admin Dose 100 MG; Start 06/22/16 at 13:30 Senna/Docusate Sodium (Senokot-S) 2 tab HS PRN PO CONSTIPATION; Start 06/22/16 at 12:00 ANDREE BOLANOS Jun 23, 2016 13:08
[2016-06-23] MEDS ORDERED: LORAZEPAM 1 MG TAB PO PRN (13:30)
--- NOTE | 2016-06-23 13:39 | RADRPT ---
Echocardiogram Report Patient Name: ZANA PEACOCK Gender: Male Date: 1940 Study Date: 22-Jun-2016 Leaf Size Picker: Nancy Wadsworth [facility] Location: [id number] Ref. Physician: BENJAMIN SMITH Quality: Technically Difficult Study Procedures: Transthoracic echocardiogram with complete 2D, M-Mode, and doppler examination. Indications: Cardiomyopathy. 2D/M Mode Doppler Measurement Value Normal Ranges Measurement Value Normal Ranges LVIDd 2D 6.4 3.5 - 5.6 cm AV Peak Damián 1.1 m/sec LVIDs 2D 3.7 2.1 - 4.1 cm AV Peak PG 5.0 mmHg FS 2D 41.8 % AI Peak PG 44.0 mmHg LVPWd 2D 1.1 0.6 - 1.1 cm AI Peak Damián 3.3 m/sec IVSd 2D 1.1 0.6 - 1.1 cm AI PHT 736.0 msec IVS/LVPW 2D 0.9 LVOT Peak Damián 0.8 m/sec AoR Diam 2D 3.3 2.0 - 3.7 cm LVOT Peak PG 3.0 mmHg LA/Ao 2D 1 0 - 1 MV E Peak Damián 0.7 m/sec EDV 2D 263.0 cm3 MV A Peak Damián 0.8 m/sec ESV 2D 51.9 cm3 MV E/A 0.8 LA Dimen 2D 4.1 2.3 - 4.0 cm MV Decel Time 176 msec MV E/A 0.8 TR Peak Damián 2.0 m/sec TR Peak PG 16.0 mmHg RVSP 19.0 mmHg Findings Left Ventricle: Mild concentric left ventricular hypertrophy. Moderate enlargement of left ventricle cavity. Severe left ventricular systolic dysfunction. Ejection fraction is visually estimated at 30 %. Tissue Doppler/Mitral Doppler indices are consistent with impaired relaxation (Stage I diastolic dysfunction). Right Ventricle: Normal right ventricular size. Normal right ventricular systolic function. Left Atrium: There is mild enlargement of left atrium. Right Atrium: The right atrium is normal in size. Mitral Valve: Mild mitral leaflet calcification. Mild mitral annular calcification. Mild mitral valve regurgitation. Aortic Valve: No hemodynamically significant aortic stenosis by doppler. Aortic cusps appear mildly calcified. Trace aortic valve regurgitation. Tricuspid Valve: Normal appearance of the tricuspid valve. Estimated peak PA systolic pressure 19 mmHg. There is trace tricuspid regurgitation. Pulmonic Valve: Normal pulmonic valve appearance. Pericardium: Normal pericardium with no significant pericardial effusion. Aorta: Normal aortic root. IVC: Normal size and normal respiratory collapse consistent with normal right atrial pressure. Conclusions 1.Mild concentric left ventricular hypertrophy. Moderate enlargement of left ventricle cavity. Severe left ventricular systolic dysfunction. Ejection fraction is visually estimated at 30 %. Tissue Doppler/Mitral Doppler indices are consistent with impaired relaxation (Stage I diastolic dysfunction). 2.Normal right ventricular size. Normal right ventricular systolic function. 3.There is mild enlargement of left atrium. 4.The right atrium is normal in size. 5.Mild mitral valve regurgitation. 6.No significant valvular stenosis or regurgitation seen of remaining visualized valves. 7.Normal pericardium with no significant pericardial effusion. Electronically Signed By: Familia Sy 23-Jun-2016 13:38:43 -0700 Patient Name: ZANA PEACOCK Study Date: 22-Jun-2016 [id number]
[2016-06-23 16:27] LABS: HEPATITIS B CORE ANTIBODY REACTIVE (NEGATIVE)
--- NOTE | 2016-06-23 16:54 | CONS ---
Date/Time of Note Date/Time of Note DATE: 06/23/16 TIME: 16:47 Assessment/Plan Assessment/Plan Additional Assessment/Plan Acute decompensated systolic congestive heart failure Severe cardiomyopathy Coronary artery disease Hypertension Dyslipidemia -Patient with improvement in shortness of breath, agree with transitioning to p.o. diuretics. Will adjust lisinopril dose to prevent hypotension. Continue beta-dipesh as blood pressure permits. Will order potassium supplementation. Consultation Date/Type/Reason Admit Date/Time Jun 21, 2016 at 19:26 Initial Consult Date Type of Consultation: cv 24 HR Interval Summary Free Text/Dictation Patient feeling better, less shortness of breath. Denies chest pain, palpitations Exam/Review of Systems Vital Signs Vitals Vital Signs Date Time Temp Pulse Resp B/P Pulse Ox O2 Delivery O2 Flow Rate FiO2 06/23/16 16:41 98.1 65 20 87/53 98 06/22/16 03:05 Room Air 06/21/16 14:00 2 Intake and Output 06/22/16 06/22/16 06/23/16 15:00 23:00 07:00 Intake Total 1000 ml 450 ml Output Total 900 ml Balance 100 ml 450 ml Exam No apparent distress Constitutional: alert, oriented Head: normocephalic Neck: supple Respiratory: other (Coarse breath sounds bilaterally, no wheezing) Cardiovascular: other (S1-S2 heard), regular rate and rhythm Gastrointestinal: bowel sounds, non-tender, other (No guarding), soft Extremities: edema (Trace), other (No cyanosis) Results Result Diagram: 06/23/16 0710 06/23/16 0710 Results 24 hrs Laboratory Tests Test 06/23/16 07:10 Alanine Aminotransferase (ALT/SGPT) 25 Albumin 4.0 Albumin/Globulin Ratio 1.48 Alkaline Phosphatase 61 Anion Gap 15 Aspartate Amino Transf (AST/SGOT) 18 Basophils # 0.0 Basophils % 0.4 Blood Urea Nitrogen 22 H Calcium Level 8.6 Carbon Dioxide Level 28 Chloride Level 102 Creatinine 0.95 Direct Bilirubin 0.00 Eosinophils # 0.1 Eosinophils % 1.5 Globulin 2.70 Glucose Level 89 Hematocrit 37.3 L Hemoglobin 12.1 L Hepatitis B Core Total Antibody REACTIVE H Hepatitis B Surface Antigen NEGATIVE Hepatitis C Antibody NEGATIVE Indirect Bilirubin 0.6 Lymphocytes # 1.3 Lymphocytes % 27.0 Magnesium Level 2.0 Mean Corpuscular Hemoglobin 29.1 Mean Corpuscular Hemoglobin Concent 32.4 Mean Corpuscular Volume 89.7 Mean Platelet Volume 9.5 Monocytes # 0.5 Monocytes % 9.7 Neutrophils # 2.9 Neutrophils % 61.2 Nucleated Red Blood Cells # 0.0 Nucleated Red Blood Cells % 0.0 Phosphorus Level 3.7 Platelet Count 164 Potassium Level 3.8 Red Blood Count 4.16 L Red Cell Distribution Width 13.1 Sodium Level 141 Total Bilirubin 0.6 Total Protein 6.7 White Blood Count 4.7 #L Medications Medications Current Medications Ondansetron HCl (Zofran Inj) 4 mg Q6H PRN IV NAUSEA AND/OR VOMITING; Start at 20:00 Acetaminophen (Tylenol Tab) 650 mg Q6H PRN PO PAIN LEVEL 1-3 OR FEVER; Start at 20:00 Acetaminophen/ Hydrocodone Bitart ([place] (5/325)) 1 tab Q6H PRN PO MODERATE PAIN LEVEL 4-6; Start 06/21/16 at 20:00 Morphine Sulfate (morphine) 2 mg Q4H PRN IV SEVERE PAIN LEVEL 7-10; Start 06/21 at 20:00 Docusate Sodium (Colace) 100 mg Q12H PRN PO CONSTIPATION; Start 06/21/16 at 20: 00 Magnesium Hydroxide (Milk Of Mag) 30 ml DAILY PRN PO CONSTIPATION; Start at 20:00 Sodium Biphosphate/ Sodium Phosphate (Fleet Enema) 133 ml DAILY PRN [place] CONSTIPATION; Start 06/21/16 at 20:00 Pantoprazole (Protonix Tab) 40 mg DAILY@06 PO Last administered on 06/23/16 06 :37; Admin Dose 40 MG; Start 06/22/16 at 06:00 Heparin Sodium (Porcine) (Heparin (5000 Units/0.5 ml)) 5,000 unit Q12 SC Last administered on 06/23/16 10:18; Admin Dose 5,000 UNIT; Start 06/21/16 at 21:00 Lorazepam (Ativan) 0.5 mg Q6H PRN IV ANXIETY; Start 06/21/16 at 20:00 Hydralazine HCl (Apresoline) 10 mg Q6H PRN IV ELEVATED BLOOD PRESSURE; Start at 20:00 Nitroglycerin (Nitroglycerin (Sl Tab) 0.4 Mg) 1 tab Q5M PRN SL ANGINA; Start at 20:00 Aspirin (Ecotrin) 325 mg DAILY PO Last administered on 06/23/16 10:17; Admin Dose 325 MG; Start 06/22/16 at 09:00 Atorvastatin Calcium (Lipitor) 20 mg QHS PO Last administered on 06/22/16 21: 21; Admin Dose 20 MG; Start 06/21/16 at 21:00 Carvedilol (Coreg) 3.125 mg BID PO Last administered on 06/22/16 09:35; Admin Dose 3.125 MG; Start 06/21/16 at 21:00; Status Future hold Lisinopril (Zestril) 10 mg DAILY PO Last administered on 06/23/16 10:17; Admin Dose 10 MG; Start 06/22/16 at 09:00 Tramadol HCl (Ultram) 50 mg Q6H PRN PO PAIN; Start 06/21/16 at 20:00 Thiamine HCl (Vitamin B1) 100 mg DAILY PO Last administered on 06/23/16 10:17 ; Admin Dose 100 MG; Start 06/22/16 at 13:30 Senna/Docusate Sodium (Senokot-S) 2 tab HS PRN PO CONSTIPATION; Start 06/22/16 at 12:00 Lorazepam (Ativan) 1 mg HS PRN PO INSOMNIA; Start 06/23/16 at 13:30 Familia Sy DO Jun 23, 2016 16:54
[2016-06-23] MEDS: FUROSEMIDE 40 MG TAB PO SCH (18:00)
[2016-06-23] MEDS: ATORVASTATIN 20 MG TAB PO SCH (20:23)
[2016-06-23] MEDS: LISINOPRIL 5 MG TAB PO SCH (20:23)
[2016-06-23] MEDS ORDERED: LISINOPRIL 10 MG TAB PO SCH (21:00)
[2016-06-24] VITALS (9 sets, daily range): BP systolic 96–133; BP diastolic 52–77; PULSE 59–67; RESP 19–21
[2016-06-24] MEDS: PANTOPRAZOLE (EC) 40 MG TAB PO SCH (05:50)
[2016-06-24] MEDS: FUROSEMIDE 40 MG TAB PO SCH (05:51)
[2016-06-24] MEDS: HEPARIN 5,000 UNIT/0.5 ML SYG SC SCH (08:56)
[2016-06-24] MEDS: THIAMINE 100 MG TAB PO SCH (08:57)
[2016-06-24] MEDS: LISINOPRIL 5 MG TAB PO SCH (08:58)
[2016-06-24] MEDS ORDERED: ASPIRIN (EC) 81 MG TAB PO SCH (09:00)
[2016-06-24] MEDS ORDERED: SPIRONOLACTONE 25 MG TAB PO SCH (09:00)
[2016-06-24 09:02] LABS: ADD SCAN DIFF NO
[2016-06-24 09:13] LABS: BASOPHILS % 0.5 % (0.0-2.0); EOSINOPHILS # 0.1 10^3/ul (0.0-0.5); EOSINOPHILS % 1.4 % (0.0-7.0); HEMATOCRIT 37.4 % (42.0-52.0); HEMOGLOBIN 12.3 g/dl (14.0-18.0); LYMPHOCYTES # 1.3 10^3/ul (0.8-2.9); LYMPHOCYTES % 29.3 % (15.0-51.0); MEAN CORPUSCULAR HEMOGLOBIN 29.1 pg (29.0-33.0); MEAN CORPUSCULAR HGB CONC 32.9 g/dl (32.0-37.0); MEAN CORPUSCULAR VOLUME 88.4 fl (82.0-101.0); MEAN PLATELET VOLUME 9.7 fl (7.4-10.4); MONOCYTE # 0.4 10^3/ul (0.3-0.9); MONOCYTES % 9.4 % (0.0-11.0); NEUTROPHIL # 2.5 10^3/ul (1.6-7.5); NEUTROPHILS % 59.2 % (39.0-77.0); PLATELET COUNT 174 10^3/UL (140-415); RED BLOOD COUNT 4.23 10^6/ul (4.70-6.10); RED CELL DISTRIBUTION WIDTH 13.1 % (11.5-14.5); WHITE BLOOD COUNT 4.3 10^3/ul (4.8-10.8)
[2016-06-24 09:17] LABS: POTASSIUM 4.2 mmol/L (3.5-5.1)
[2016-06-24 09:20] LABS: CREATININE 0.78 mg/dl (0.61-1.24)
[2016-06-24 09:21] LABS: CALCIUM 8.9 mg/dl (8.4-10.2)
--- NOTE | 2016-06-24 14:33 | PN ---
Date/Time of Note Date/Time of Note DATE: 06/24/16 TIME: 14:26 Assessment/Plan VTE Prophylaxis VTE Prophylaxis Intervention: heparin Lines/Catheters IV [facility]ter Type (from [facility] Saline Lock Urinary Cath still in place: No Assessment/Plan Assessment/Plan 75-year-old male with: 1. Shortness of breath, chest pressure, likely all related to congestive heart failure and ischemic cardiomyopathy with mild exacerbation. Patient with resolved SOB and CORTES, BP stable Change Lasix to 20 mg po bid to be taken along with Aldactone 12.5 mg po bid Continue James inhibitors Sinus rhythm on telemetry Continue cardiac medication at lower dosage and also continue aspirin. 2. Coronary artery disease. Continue cardiac medications including carvedilol , lisinopril, Lipitor, and aspirin. BP seems to remain stable with lower doses 3. Hyperlipidemia. Continue Lipitor. 4. Hypertension. Stable BP with current cardiac meds and diuretics. Prophylaxis: Pepcid for gastrointestinal prophylaxis. Heparin subq for deep vein thrombosis prophylaxis. DISPOSITION: D/c home with outpatient PCP and cardiology follow up. Subjective 24 Hr Interval Summary Free Text/Dictation Patient doing well No complaints today and BP stable on lower dosages of meds D/c home with outpatient cardio and PCP follow up Exam/Review of Systems Vital Signs Vitals Vital Signs Date Time Temp Pulse Resp B/P Pulse Ox O2 Delivery O2 Flow Rate FiO2 06/24/16 12:03 64 06/24/16 11:56 97.1 19 96/52 96 06/23/16 20:00 Room Air 06/21/16 14:00 2 Intake and Output 06/23/16 06/23/16 06/24/16 14:59 22:59 06:59 Intake Total 800 ml 400 ml Balance 800 ml 400 ml Exam Constitutional: alert, oriented, well developed Respiratory: clear to auscultation, normal air movement, other (on RA ) Cardiovascular: nl pulses, regular rate and rhythm Gastrointestinal: non-tender, soft Musculoskeletal: nl extremities to inspection Extremities: normal pulses, other (no edema, clubbing or cyanosis ) 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, nl mental status, nl speech, nl strength Results Result Diagram: 06/24/16 0649 06/24/16 0500 Results 24 hrs Laboratory Tests Test 06/24/16 05:00 06/24/16 06:49 Sodium Level 140 Potassium Level 4.2 Chloride Level 103 Carbon Dioxide Level 24 Anion Gap 17 H Blood Urea Nitrogen 19 Creatinine 0.78 Glucose Level 87 Calcium Level 8.9 White Blood Count 4.3 L Red Blood Count 4.23 L Hemoglobin 12.3 L Hematocrit 37.4 L Mean Corpuscular Volume 88.4 Mean Corpuscular Hemoglobin 29.1 Mean Corpuscular Hemoglobin Concent 32.9 Red Cell Distribution Width 13.1 Platelet Count 174 Mean Platelet Volume 9.7 Neutrophils % 59.2 Lymphocytes % 29.3 Monocytes % 9.4 Eosinophils % 1.4 Basophils % 0.5 Nucleated Red Blood Cells % 0.0 Neutrophils # 2.5 Lymphocytes # 1.3 Monocytes # 0.4 Eosinophils # 0.1 Basophils # 0.0 Nucleated Red Blood Cells # 0.0 Magnesium Level 2.0 Medications Medications Current Medications Ondansetron HCl (Zofran Inj) 4 mg Q6H PRN IV NAUSEA AND/OR VOMITING; Start at 20:00 Acetaminophen (Tylenol Tab) 650 mg Q6H PRN PO PAIN LEVEL 1-3 OR FEVER; Start at 20:00 Acetaminophen/ Hydrocodone Bitart ([place] (5/325)) 1 tab Q6H PRN PO MODERATE PAIN LEVEL 4-6; Start 06/21/16 at 20:00 Morphine Sulfate (morphine) 2 mg Q4H PRN IV SEVERE PAIN LEVEL 7-10; Start 06/21 at 20:00 Docusate Sodium (Colace) 100 mg Q12H PRN PO CONSTIPATION; Start 06/21/16 at 20: 00 Magnesium Hydroxide (Milk Of Mag) 30 ml DAILY PRN PO CONSTIPATION; Start at 20:00 Sodium Biphosphate/ Sodium Phosphate (Fleet Enema) 133 ml DAILY PRN [place] CONSTIPATION; Start 06/21/16 at 20:00 Pantoprazole (Protonix Tab) 40 mg DAILY@06 PO Last administered on 06/24/16 05 :50; Admin Dose 40 MG; Start 06/22/16 at 06:00 Heparin Sodium (Porcine) (Heparin (5000 Units/0.5 ml)) 5,000 unit Q12 SC Last administered on 06/24/16 08:56; Admin Dose 5,000 UNIT; Start 06/21/16 at 21:00 Lorazepam (Ativan) 0.5 mg Q6H PRN IV ANXIETY; Start 06/21/16 at 20:00 Hydralazine HCl (Apresoline) 10 mg Q6H PRN IV ELEVATED BLOOD PRESSURE; Start at 20:00 Nitroglycerin (Nitroglycerin (Sl Tab) 0.4 Mg) 1 tab Q5M PRN SL ANGINA; Start at 20:00 Atorvastatin Calcium (Lipitor) 20 mg QHS PO Last administered on 06/23/16 20: 23; Admin Dose 20 MG; Start 06/21/16 at 21:00 Carvedilol (Coreg) 3.125 mg BID PO Last administered on 06/24/16 08:57; Admin Dose 3.125 MG; Start 06/21/16 at 21:00; Status Future hold Tramadol HCl (Ultram) 50 mg Q6H PRN PO PAIN; Start 06/21/16 at 20:00 Thiamine HCl (Vitamin B1) 100 mg DAILY PO Last administered on 06/24/16 08:57 ; Admin Dose 100 MG; Start 06/22/16 at 13:30 Senna/Docusate Sodium (Senokot-S) 2 tab HS PRN PO CONSTIPATION; Start 06/22/16 at 12:00 Lorazepam (Ativan) 1 mg HS PRN PO INSOMNIA; Start 06/23/16 at 13:30 Aspirin (Halfprin) 81 mg DAILY PO Last administered on 06/24/16 08:57; Admin Dose 81 MG; Start 06/24/16 at 09:00 Lisinopril (Zestril) 5 mg DAILY PO Last administered on 06/24/16 08:58; Admin Dose 5 MG; Start 06/23/16 at 21:00 Spironolactone (Aldactone) 12.5 mg DAILY PO Last administered on 06/24/16 08: 58; Admin Dose 12.5 MG; Start 06/24/16 at 09:00 ANDREE BOLANOS Jun 24, 2016 14:33
--- NOTE | 2016-06-24 14:34 | PDOCDIS ---
Discharge Instructions CONDITION Patient Condition: Stable HOME CARE INSTRUCTIONS: Special Diet: LOW FAT LOW CHOLES 2GM NA ACTIVITY: Activity Restrictions: Slowly Increase Activity FOLLOW UP/APPOINTMENTS Appointments Follow up with PCP within 1 week Follow up with Dr Patterson within 1 to 2 weeks ANDREE BOLAONS Jun 24, 2016 14:34
[2016-06-24] MEDS ORDERED: LAS20 PO (14:38)
[2016-06-24] MEDS ORDERED: SPIR25TA PO (14:38)
[2016-06-24] MEDS ORDERED: LISI-313 PO (14:38)
[2016-06-24] MEDS ORDERED: FUROSEMIDE 20 MG TAB PO SCH (18:00)
--- NOTE | 2016-06-24 18:31 | CONS ---
Date/Time of Note Date/Time of Note DATE: 06/24/16 TIME: 18:29 Assessment/Plan Assessment/Plan Additional Assessment/Plan Acute decompensated systolic congestive heart failure, improved Severe cardiomyopathy Coronary artery disease Hypertension Dyslipidemia -Patient with improvement in symptoms as well as examination. Would continue maintenance diuretics as blood pressure and renal function permits. DC planning. Consultation Date/Type/Reason Admit Date/Time Jun 21, 2016 at 19:26 Type of Consultation: cv 24 HR Interval Summary Free Text/Dictation Patient denies shortness of breath and feeling better. Denies chest pain Exam/Review of Systems Vital Signs Vitals Vital Signs Date Time Temp Pulse Resp B/P Pulse Ox O2 Delivery O2 Flow Rate FiO2 06/24/16 16:04 97.6 63 19 106/59 97 06/23/16 20:00 Room Air 06/21/16 14:00 2 Intake and Output 06/23/16 06/23/16 06/24/16 15:00 23:00 07:00 Intake Total 800 ml 400 ml Balance 800 ml 400 ml Exam No apparent distress Constitutional: alert, oriented Head: normocephalic Neck: supple Respiratory: other (Coarse breath sounds bilaterally, no wheezing) Cardiovascular: other (S1-S2 heard), regular rate and rhythm Gastrointestinal: bowel sounds, non-tender, other (no guarding), soft Extremities: edema (Trace), other (No cyanosis) Results Result Diagram: 06/24/16 0649 06/24/16 0500 Results 24 hrs Laboratory Tests Test 06/24/16 05:00 06/24/16 06:49 Sodium Level 140 Potassium Level 4.2 Chloride Level 103 Carbon Dioxide Level 24 Anion Gap 17 H Blood Urea Nitrogen 19 Creatinine 0.78 Glucose Level 87 Calcium Level 8.9 White Blood Count 4.3 L Red Blood Count 4.23 L Hemoglobin 12.3 L Hematocrit 37.4 L Mean Corpuscular Volume 88.4 Mean Corpuscular Hemoglobin 29.1 Mean Corpuscular Hemoglobin Concent 32.9 Red Cell Distribution Width 13.1 Platelet Count 174 Mean Platelet Volume 9.7 Neutrophils % 59.2 Lymphocytes % 29.3 Monocytes % 9.4 Eosinophils % 1.4 Basophils % 0.5 Nucleated Red Blood Cells % 0.0 Neutrophils # 2.5 Lymphocytes # 1.3 Monocytes # 0.4 Eosinophils # 0.1 Basophils # 0.0 Nucleated Red Blood Cells # 0.0 Magnesium Level 2.0 Medications Medications Current Medications Ondansetron HCl (Zofran Inj) 4 mg Q6H PRN IV NAUSEA AND/OR VOMITING; Start at 20:00 Acetaminophen (Tylenol Tab) 650 mg Q6H PRN PO PAIN LEVEL 1-3 OR FEVER; Start at 20:00 Acetaminophen/ Hydrocodone Bitart ([place] (5/325)) 1 tab Q6H PRN PO MODERATE PAIN LEVEL 4-6; Start 06/21/16 at 20:00 Morphine Sulfate (morphine) 2 mg Q4H PRN IV SEVERE PAIN LEVEL 7-10; Start 06/21 at 20:00 Docusate Sodium (Colace) 100 mg Q12H PRN PO CONSTIPATION; Start 06/21/16 at 20: 00 Magnesium Hydroxide (Milk Of Mag) 30 ml DAILY PRN PO CONSTIPATION; Start at 20:00 Sodium Biphosphate/ Sodium Phosphate (Fleet Enema) 133 ml DAILY PRN [place] CONSTIPATION; Start 06/21/16 at 20:00 Pantoprazole (Protonix Tab) 40 mg DAILY@06 PO Last administered on 06/24/16 05 :50; Admin Dose 40 MG; Start 06/22/16 at 06:00 Heparin Sodium (Porcine) (Heparin (5000 Units/0.5 ml)) 5,000 unit Q12 SC Last administered on 06/24/16 08:56; Admin Dose 5,000 UNIT; Start 06/21/16 at 21:00 Lorazepam (Ativan) 0.5 mg Q6H PRN IV ANXIETY; Start 06/21/16 at 20:00 Hydralazine HCl (Apresoline) 10 mg Q6H PRN IV ELEVATED BLOOD PRESSURE; Start at 20:00 Nitroglycerin (Nitroglycerin (Sl Tab) 0.4 Mg) 1 tab Q5M PRN SL ANGINA; Start at 20:00 Atorvastatin Calcium (Lipitor) 20 mg QHS PO Last administered on 06/23/16 20: 23; Admin Dose 20 MG; Start 06/21/16 at 21:00 Carvedilol (Coreg) 3.125 mg BID PO Last administered on 06/24/16 08:57; Admin Dose 3.125 MG; Start 06/21/16 at 21:00; Status Future hold Tramadol HCl (Ultram) 50 mg Q6H PRN PO PAIN; Start 06/21/16 at 20:00 Thiamine HCl (Vitamin B1) 100 mg DAILY PO Last administered on 06/24/16 08:57 ; Admin Dose 100 MG; Start 06/22/16 at 13:30 Senna/Docusate Sodium (Senokot-S) 2 tab HS PRN PO CONSTIPATION; Start 06/22/16 at 12:00 Lorazepam (Ativan) 1 mg HS PRN PO INSOMNIA; Start 06/23/16 at 13:30 Aspirin (Halfprin) 81 mg DAILY PO Last administered on 06/24/16 08:57; Admin Dose 81 MG; Start 06/24/16 at 09:00 Lisinopril (Zestril) 5 mg DAILY PO Last administered on 06/24/16 08:58; Admin Dose 5 MG; Start 06/23/16 at 21:00 Spironolactone (Aldactone) 12.5 mg DAILY PO Last administered on 06/24/16 08: 58; Admin Dose 12.5 MG; Start 06/24/16 at 09:00 Furosemide (Lasix) 20 mg DAILY PO ; Start 06/25/16 at 09:00 Familia Sy DO Jun 24, 2016 18:31
[2016-06-25] MEDS ORDERED: FUROSEMIDE 20 MG TAB PO SCH (09:00)
== END 2016-06-24 19:10 | disposition home or self-care (01) | DRG 293 ==
LOC: E/R 13:55 → MS4 19:26
PROVIDERS: ADMIT Internal Medicine; ATTEND Internal Medicine
DX: I50.23 Acute on chronic systolic (congestive) heart failure (principal); I25.5 Ischemic cardiomyopathy; I25.10 Atherosclerotic heart disease of native coronary artery without angina pectoris; I10 Essential (primary) hypertension; E78.5 Hyperlipidemia, unspecified; Z79.82 Long term (current) use of aspirin
CPT/HCPCS: 36415; 71010; 80048; 80053; 80061; 82306; 82550; 82553; 83036; 83735; 83880; 84100; 84439; 84443; 84484; 85025; 85610; 85730; 86704; 86709; 86803; 87340; 93005; 93306; 96372; 96374; 97162; J1644; J1940; J2270; J7040

== ENCOUNTER 2016-07-25 10:47 | Emergency (ER) | payer OTHER ==
[~2016-07-25] VITALS: Ht 165.1 cm; Wt 80.0 kg
[~2016-07-25 10:47] MED LIST changes: +CARV3.1260 PO; -Carvedilol PO; -HYDR10TA36 PO; +LAS20 PO; +LORA1TAB PO; +SPIR25TA PO; +TRAM-40 PO
[2016-07-25 10:50] VITALS: Ht 165.1 cm; Wt 80.0 kg
[2016-07-25] MEDS ORDERED: ONDANSETRON (ODT) 4 MG TAB ODT STA (11:49)
[2016-07-25] MEDS ORDERED: HYDROCODONE/APAP (5/325) TAB PO ONE (12:00)
--- NOTE | 2016-07-25 12:59 | RADRPT ---
PROCEDURE: CT Lumbar Spine. CLINICAL INDICATION: Lower back pain. TECHNIQUE: Noncontrast CT of the lumbar spine was performed with multiplanar reformatted images gen erated from the axial acquired data. The administered radiation dose was CTDI vol = 34.15 mGy, DLP = 1104 mGy-cm. One or more of the following dose reduction techniques were used: Automated exposure control, Adjustment of the mA and/or kV according to patient size, or Use of iterative reconstructio n technique. COMPARISON: There are no similar studies submitted for comparison. FINDINGS: There is normal lumbar lordosis. The vertebral body heights are maintained. There is no destructive osseous lesion. There is no acute fracture. L1-L2 : There is a 2 mm broad-based disk bulge with moderate bilateral facet arthropathy and ligamen chandrika flavum infolding with mild spinal canal stenosis. There is mild left without right foraminal st enosis. L2-L3 : There is a 2 mm broad-based disk bulge with moderate bilateral facet arthropathy and ligamen chandrika flavum infolding causing mild spinal canal stenosis. There is no bilateral foraminal stenosis. L3-L4 : There is a 2 mm circumferential disk bulge with moderate bilateral facet arthropathy and lig amentum flavum infolding without spinal canal stenosis. There is no bilateral foraminal stenosis. L4-L5 : There is a 2 mm circumferential disk bulge with moderate bilateral facet arthropathy and lig amentum flavum infolding causing mild to moderate spinal canal stenosis. There is moderate to sever e bilateral foraminal stenosis impinging the exiting bilateral L4 nerve roots. L5-S1 : There is mild to moderate disk space narrowing. There is 3 mm of grade 1 anterolisthesis wi th chronic bilateral L5 spondylolysis with a circumferential pseudo disk bulge with moderate bilater al facet arthropathy without spinal canal stenosis. There is moderate to severe left with moderate right foraminal stenosis impinging the exiting left L5 and contacting of the exiting right L5 nerve roots as detailed above. The sacroiliac joints are intact. IMPRESSION: 1. No acute fracture. 2. L4-L5 circumferential disk bulge with mild to moderate spinal canal stenosis. There is moderate to severe bilateral foraminal stenosis impinging the exiting bilateral L4 nerve roots. 3. L5-S1 grade 1 anterolisthesis with chronic bilateral L5 spondylolysis with a circumferential pse udo disk bulge with moderate to severe left with moderate right foraminal stenosis impinging the exi ting left L5 and contacting of the exiting right L5 nerve roots as detailed above. Further findings as detailed above. RPTAT: AA .Fran Zavala MD, Date Time Electronically viewed and signed by .Fran Zavala MD, on 07/25/2016 12:58 .F/
--- NOTE | 2016-07-25 13:04 | RADRPT ---
PROCEDURE: CT Thoracic Spine. CLINICAL INDICATION: Back pain. TECHNIQUE: Noncontrast CT of the thoracic spine was performed with multiplanar reformatted images g enerated from the axial acquired data. The administered radiation dose was CTDI vol = 23.85 mGy, DL P = 956.51 mGy-cm. One or more of the following dose reduction techniques were used: Automated expos ure control, Adjustment of the mA and/or kV according to patient size, or Use of iterative reconstru ction technique. COMPARISON: There are no similar studies submitted for comparison. FINDINGS: There is preservation of the normal thoracic kyphosis. The vertebral body heights are maintained. There is normal alignment. There is no destructive osseous lesion. There is no acute fracture. There is mild multilevel disk space narrowing. T9-T10: There is moderate bilateral facet arthropathy without disk herniation, spinal canal or bila teral foraminal stenosis. T10-T11: There is moderate bilateral facet arthropathy without disk herniation, spinal canal, or bi lateral foraminal stenosis. T11-T12: There is a 1 mm broad-based disk bulge without spinal canal or bilateral foraminal stenosi s. T12-L1 : There is a 2 mm broad-based disk bulge and mild bilateral facet arthropathy without spinal canal stenosis. There is mild to moderate right without left foraminal stenosis. There is a small right paratracheal air cyst. IMPRESSION: 1. No acute fracture. 2. Mild degenerative changes within the thoracic spine. Further findings as detailed above. RPTAT: AA .Fran Zavala MD, MD Date Time Electronically viewed and signed by .Fran Zavala MD, on 07/25/2016 13:04 .F/
[2016-07-25] MEDS ORDERED: MED4DP PO (13:34)
[2016-07-25] MEDS ORDERED: OMEP20CA16 PO (13:35)
[2016-07-25] MEDS ORDERED: HYDR-906 PO (13:35)
[2016-07-25] MEDS ORDERED: NAPR-260 PO (13:35)
[2016-07-25 13:53] VITALS: BP 111/74; PULSE 53; RESP 18; TEMP 97.9
--- NOTE | 2016-07-25 17:41 | ERD ---
ER Documentation Chief Complaint Date/Time DATE: 07/25/16 TIME: 17:37 Chief Complaint BACK PAIN X 2 MOS HPI This patient is a 75-year-old male with past medical history of acute coronary syndrome and myocardial infarction and chronic low back pain presenting to the emergency department for right-sided mid to low back pain for the past 1.5 months. The pain is been worsening recently. The patient has never had imaging studies done of his back. The patient cannot sleep secondary to pain. The patient denies radiation down his legs. The patient denies fevers, chills, loss of bowel or bladder function, loss of function of his limbs, or other symptoms at this time. The patient is taken no medications at home for relief of symptoms. ROS All systems reviewed and are negative except as per history of present illness. Medications Home Meds Active Scripts Omeprazole* (Omeprazole*) 20 Mg Capsule.dr, 20 MG PO DAILY, #30 CAP Prov:MAKENNA SLAUGHTER PA-C 07/25/16 Naproxen* (Naprosyn*) 500 Mg Tablet, 500 MG PO BID Y for PAIN AND/OR INFLAMMATION, #30 TAB Prov:MAKENNA SLAUGHTER PA-C 07/25/16 Hydrocodone/Acetaminophen (Monroe 5-325 Tablet) 1 Each Tablet, 1 TAB PO Q6H Y for PAIN, #20 TAB Prov:MAKENNA SLAUGHTER PA-C 07/25/16 Methylprednisolone* (Medrol* DOSE PACK) 4 Mg/Dose-Pack Tab.ds.pk, 4 MG PO . DIRECTED, #1 PACKET Prov:MAKENNA SLAUGHTER PA-C 07/25/16 Spironolactone* (Aldactone*) 25 Mg Tablet, 12.5 MG PO BID for 30 Days, TAB 3 Refills 1/2 tab po bid Prov:ANDREE BOLANOS 06/24/16 Lisinopril* (Lisinopril*) 5 Mg Tablet, 5 MG PO DAILY for 30 Days, TAB 3 Refills Prov:ANDREE BOLANOS 06/24/16 Furosemide (Lasix) 20 Mg Tab, 20 MG PO BID DIURETICS for 30 Days, TAB 3 Refills Prov:ANDREE BOLANOS 06/24/16 Aspirin (Aspirin) 81 Mg Chew, 81 MG PO DAILY for 30 Days, TAB Prov:KASSIE LONG 05/09/15 Reported Medications Atorvastatin Calcium* (Atorvastatin Calcium*) 20 Mg Tablet, 20 MG PO QHS, #30 TAB 06/21/16 Carvedilol* (Carvedilol*) 3.125 Mg Tablet, 3.125 MG PO BID, #60 TAB 06/21/16 Tramadol Hcl* (Ultram*) 50 Mg Tablet, 50 MG PO Q6H Y for PAIN, TAB 06/21/16 Lorazepam* (Lorazepam*) 1 Mg Tablet, 1 MG PO HS, #30 TAB 06/21/16 Allergies Allergies: Coded Allergies: No Known Allergy (Unverified , 07/25/16) PMhx/Soc Anesthesia Reaction: No Hx Neurological Disorder: No Hx Respiratory Disorders: No Hx Cardiac Disorders: Yes (HTN, CHF, [place]) Hx Psychiatric Problems: No Hx Miscellaneous Medical Probl: Yes (cardiac dse, cardiomyopathy,STEMI/htn) Hx Alcohol Use: No Hx Substance Use: No Hx Tobacco Use: No Smoking Status: Never smoker FmHx Noncontributory for chief complaint Physical Exam Vitals Vital Signs Date Time Temp Pulse Resp B/P Pulse Ox O2 Delivery O2 Flow Rate FiO2 07/25/16 13:53 97.9 53 18 111/74 99 07/25/16 10:50 98.1 64 20 129/63 99 Physical Exam Const: The patient is resting comfortably in no acute distress. Head: Atraumatic Eyes: Normal Conjunctiva ENT: Normal External Ears, Nose and Mouth. Neck: Full range of motion..~ No meningismus. Resp: Clear to auscultation bilaterally Cardio: Regular rate and rhythm, no murmurs Abd: Soft, non tender, non distended. Normal bowel sounds Skin: No petechiae or rashes Back: No midline or flank tenderness. The patient has tenderness palpation of the right or spinal lumbar muscles. Unable to complete the straight leg raise test secondary to pain. The patient has no midline tenderness or step- offs. Ext: No cyanosis, or edema Neur: Awake and alert Psych: Normal Mood and Affect Results 24 hrs Current Medications Medications (Trade) Dose Ordered Sig/Rafiq Route PRN Reason Start Time Stop Time Status Last Admin Dose Admin Acetaminophen/ Hydrocodone Bitart (Monroe (5/325)) 1 tab ONCE ONCE PO 07/25/16 12:00 07/25/16 12:01 DC 07/25/16 12:50 Ondansetron HCl (Zofran Odt) 4 mg ONCE STAT ODT 07/25/16 11:49 07/25/16 11:50 DC 07/25/16 12:50 Procedures/MDM 75-year-old male presents secondary to complaints of low back pain. On physical examination the patient does have tenderness palpation of the paraspinal muscles of the L-spine. The patient was medicated in the department with p.o. Monroe and p.o. Zofran the patient was feeling improved on reevaluation. Imaging: PROCEDURE: CT Lumbar Spine. CLINICAL INDICATION: Lower back pain. TECHNIQUE: Noncontrast CT of the lumbar spine was performed with multiplanar reformatted images generated from the axial acquired data. The administered radiation dose was CTDI vol = 34.15 mGy, DLP = 1104 mGy-cm. One or more of the following dose reduction techniques were used: Automated exposure control, Adjustment of the mA and/or kV according to patient size, or Use of iterative reconstruction technique. COMPARISON: There are no similar studies submitted for comparison. FINDINGS: There is normal lumbar lordosis. The vertebral body heights are maintained. There is no destructive osseous lesion. There is no acute fracture. L1-L2 : There is a 2 mm broad-based disk bulge with moderate bilateral facet arthropathy and ligamentum flavum infolding with mild spinal canal stenosis. There is mild left without right foraminal stenosis. L2-L3 : There is a 2 mm broad-based disk bulge with moderate bilateral facet arthropathy and ligamentum flavum infolding causing mild spinal canal stenosis. There is no bilateral foraminal stenosis. L3-L4 : There is a 2 mm circumferential disk bulge with moderate bilateral facet arthropathy and ligamentum flavum infolding without spinal canal stenosis. There is no bilateral foraminal stenosis. L4-L5 : There is a 2 mm circumferential disk bulge with moderate bilateral facet arthropathy and ligamentum flavum infolding causing mild to moderate spinal canal stenosis. There is moderate to severe bilateral foraminal stenosis impinging the exiting bilateral L4 nerve roots. L5-S1 : There is mild to moderate disk space narrowing. There is 3 mm of grade 1 anterolisthesis with chronic bilateral L5 spondylolysis with a circumferential pseudo disk bulge with moderate bilateral facet arthropathy without spinal canal stenosis. There is moderate to severe left with moderate right foraminal stenosis impinging the exiting left L5 and contacting of the exiting right L5 nerve roots as detailed above. The sacroiliac joints are intact. IMPRESSION: 1. No acute fracture. 2. L4-L5 circumferential disk bulge with mild to moderate spinal canal stenosis. There is moderate to severe bilateral foraminal stenosis impinging the exiting bilateral L4 nerve roots. 3. L5-S1 grade 1 anterolisthesis with chronic bilateral L5 spondylolysis with a circumferential pseudo disk bulge with moderate to severe left with moderate right foraminal stenosis impinging the exiting left L5 and contacting of the exiting right L5 nerve roots as detailed above. Further findings as detailed above. RPTAT: AA .Fran Zavala MD, Date Time Electronically viewed and signed by .Fran Zavala MD, MD on 07/25/2016 12:58 .F/ CC: MAKENNA SLAUGHTER PA-C PROCEDURE: CT Thoracic Spine. CLINICAL INDICATION: Back pain. TECHNIQUE: Noncontrast CT of the thoracic spine was performed with multiplanar reformatted images generated from the axial acquired data. The administered radiation dose was CTDI vol = 23.85 mGy, DLP = 956.51 mGy-cm. One or more of the following dose reduction techniques were used: Automated exposure control, Adjustment of the mA and/or kV according to patient size, or Use of iterative reconstruction technique. COMPARISON: There are no similar studies submitted for comparison. FINDINGS: There is preservation of the normal thoracic kyphosis. The vertebral body heights are maintained. There is normal alignment. There is no destructive osseous lesion. There is no acute fracture. There is mild multilevel disk space narrowing. T9-T10: There is moderate bilateral facet arthropathy without disk herniation, spinal canal or bilateral foraminal stenosis. T10-T11: There is moderate bilateral facet arthropathy without disk herniation , spinal canal, or bilateral foraminal stenosis. T11-T12: There is a 1 mm broad-based disk bulge without spinal canal or bilateral foraminal stenosis. T12-L1 : There is a 2 mm broad-based disk bulge and mild bilateral facet arthropathy without spinal canal stenosis. There is mild to moderate right without left foraminal stenosis. There is a small right paratracheal air cyst. IMPRESSION: 1. No acute fracture. 2. Mild degenerative changes within the thoracic spine. Further findings as detailed above. RPTAT: AA .Fran Zavala MD, MD Date Time Electronically viewed and signed by .Fran Zavala MD, on 07/25/2016 13:04 .F/ CC: MAKENNA SLAUGHTER PA-C I had a long discussion with the patient's son, Kristofer who is translating for the patient. He shared the results with the patient. The patient is to follow- up with orthopedic surgeon regarding the results. The patient is also to follow -up with his primary care physician. All questions and concerns were addressed. Patient was given strict ER return precautions. Primary diagnosis is back pain. The patient stable for outpatient management with prescriptions for Medrol Dosepak, Monroe, naproxen, and omeprazole. I have low suspicion for cauda equina, epidural abscess, vertebral body fracture, or other emergent conditions. Departure Diagnosis: Primary Impression: Back pain Condition: Fair Patient Instructions: Back Pain (Acute Or Chronic) Referrals: ARELY QUINTERO (PCP) [facility] YOU HAVE RECEIVED A MEDICAL SCREENING EXAM AND THE RESULTS INDICATE THAT YOU DO NOT HAVE A CONDITION THAT REQUIRES URGENT TREATMENT IN THE EMERGENCY DEPARTMENT. FURTHER EVALUATION AND TREATMENT OF YOUR CONDITION CAN WAIT UNTIL YOU ARE SEEN IN YOUR DOCTORS OFFICE WITHIN THE NEXT 1-2 DAYS. IT IS YOUR RESPONSIBILITY TO MAKE AN APPOINTMENT FOR FOLOW-UP CARE. IF YOU HAVE A PRIMARY DOCTOR --you should call your primary doctor and schedule an appointment IF YOU DO NOT HAVE A PRIMARY DOCTOR YOU CAN CALL OUR PHYSICIAN REFERRAL HOTLINE AT IF YOU CAN NOT AFFORD TO SEE A PHYSICIAN YOU CAN CHOSE FROM THE FOLLOWING [facility] [address] [facility] [address] [facility] [address] [facility] [address] [facility] [address] [facility]. [facility] [address] [facility] Hours: Mon-Fri 9:00 AM - 5:00 PM Additional Instructions: Follow up with your PCP within the next 1-3 days for a more thorough evaluation and a possible referral to a specialist. Return the the emergency department immediately if symptoms worsen or change. If you have any questions regarding medications, ask your pharmacist or us before you leave. If any adverse reactions, occur while taking your medications, discontinue the treatment and return to the emergency department immediately. If any new or worsening symptoms, uncontrolled fevers, or other unexplained symptoms occur, return to the emergency department immediately. Take your medications as directed, and complete the entire course of treatment. MAKENNA SLAUGHTER PA-C Jul 25, 2016 17:41
== END 2016-07-25 13:55 | disposition home or self-care (01) ==
LOC: FTE 10:47
DX: M54.5 Low back pain (principal); I10 Essential (primary) hypertension; I50.9 Heart failure, unspecified; Z79.82 Long term (current) use of aspirin
CPT/HCPCS: 72128; 72131; Z7502; Z7610

== ENCOUNTER 2017-01-26 16:57 | Emergency (ER) | payer OTHER ==
[~2017-01-26] VITALS: Ht 182.9 cm; Wt 95.0 kg
[~2017-01-26 16:57] MED LIST changes: +HYDR-906 PO; +MED4DP PO; +NAPR-260 PO; +OMEP20CA16 PO
[2017-01-26 17:04] VITALS: Ht 182.9 cm; Wt 95.0 kg
[2017-01-26] MEDS ORDERED: morphine 4 MG/ML VIAL IV STA (17:19)
[2017-01-26] MEDS ORDERED: ONDANSETRON 4 MG INJ IV STA (17:19)
--- NOTE | 2017-01-26 18:06 | RADRPT ---
PROCEDURE: XR Chest. CLINICAL INDICATION: Abdominal pain. TECHNIQUE: Single frontal view. COMPARISON: None. FINDINGS: The lungs are clear. The heart is enlarged. There is no pleural effusion. There is no pneumothorax. IMPRESSION: 1. Cardiomegaly. 2. Clear lungs. RPTAT: QQ .Enoch Montana MD, MD Date Time Electronically viewed and signed by .Enoch Montana MD, on 01/26/2017 18:06 .R/
[2017-01-26 18:28] LABS: BASOPHILS % 0.5 % (0.0-2.0); HEMATOCRIT 39.6 % (42.0-52.0); HEMOGLOBIN 12.7 g/dl (14.0-18.0); LYMPHOCYTES # 1.3 10^3/ul (0.8-2.9); LYMPHOCYTES % 31.9 % (15.0-51.0); MEAN CORPUSCULAR HEMOGLOBIN 28.3 pg (29.0-33.0); MEAN CORPUSCULAR HGB CONC 32.1 g/dl (32.0-37.0); MEAN CORPUSCULAR VOLUME 88.2 fl (82.0-101.0); MEAN PLATELET VOLUME 9.4 fl (7.4-10.4); MONOCYTE # 0.4 10^3/ul (0.3-0.9); MONOCYTES % 10.3 % (0.0-11.0); NEUTROPHIL # 2.3 10^3/ul (1.6-7.5); NEUTROPHILS % 56.1 % (39.0-77.0); PLATELET COUNT 179 10^3/UL (140-415); RED BLOOD COUNT 4.49 10^6/ul (4.70-6.10); RED CELL DISTRIBUTION WIDTH 13.5 % (11.5-14.5); WHITE BLOOD COUNT 4.1 10^3/ul (4.8-10.8)
[2017-01-26 18:42] LABS: ADD UMIC YES; UR ASCORBIC ACID NEGATIVE (NEGATIVE); UR BILIRUBIN (Dip) NEGATIVE (NEGATIVE); UR BLOOD (Dip) 1+ mg/dL (NEGATIVE); UR CLARITY CLEAR (CLEAR); UR COLOR AMBER (YELLOW); UR GLUCOSE (Dip) NEGATIVE (NEGATIVE); UR KETONES (Dip) NEGATIVE (NEGATIVE); UR LEUKOCYTE ESTERASE (Dip) NEGATIVE Leu/ul (NEGATIVE); UR MUCUS MANY /HPF (NONE SEEN); UR NITRITE (Dip) NEGATIVE (NEGATIVE); UR RBC 4 /HPF (0-5); UR SPECIFIC GRAVITY (Dip) 1.028 (1.003-1.030); UR TOTAL PROTEIN (Dip) NEGATIVE (NEGATIVE); UR UROBILINOGEN (Dip) 1+ mg/dL (NEGATIVE)
[2017-01-26 18:52] LABS: ALANINE AMINOTRANSFERASE 39 IU/L (13-69); ALBUMIN 4.8 g/dl (3.3-4.9); ALBUMIN/GLOBULIN RATIO 1.45; ALKALINE PHOSPHATASE 78 IU/L (42-121); ANION GAP 16 (8-16); ASPARTATE AMINO TRANSFERASE 25 IU/L (15-46); BILIRUBIN,INDIRECT 0.5 mg/dl (0-1.1); BILIRUBIN,TOTAL 0.5 mg/dl (0.2-1.3); BLOOD UREA NITROGEN 13 mg/dl (7-20); CALCIUM 9.7 mg/dl (8.4-10.2); CARBON DIOXIDE 26 mmol/L (21-31); CHLORIDE 108 mmol/L (97-110); CREATININE 0.88 mg/dl (0.61-1.24); GLUCOSE 94 mg/dl (70-220); POTASSIUM 4.2 mmol/L (3.5-5.1); SODIUM 146 mmol/L (135-144); TOTAL PROTEIN 8.1 g/dl (6.1-8.1)
[2017-01-26 18:56] LABS: PT RATIO 1.1
[2017-01-26 18:57] LABS: PARTIAL THROMBOPLASTIN TIME 27.4 Sec (25.0-35.0)
[2017-01-26 18:59] LABS: TROPONIN-I < 0.012 ng/ml (0.00-0.12)
--- NOTE | 2017-01-26 19:11 | RADRPT ---
PROCEDURE: CT abdomen and pelvis without contrast. CLINICAL INDICATION: Abdominal pain in the right lower quadrant TECHNIQUE: CT scan of the abdomen and pelvis without contrast was performed on a multislice CT [facility] utilizing axial imaging from the lung bases through the pubis symphysis. The patient was scann ed without intravenous contrast. Sagittal and coronal reformatted images were made. The CTDIvol is 19.49 mGy and the DLP is 1100.13 mGycm. One of the following 3 dose reduction techniques were used during this CT examination: 1) Automated exposure control 2) Adjustment of the mA +/- kV according to patient size or 3) Use of iterative reconstruction technique COMPARISON: None available FINDINGS: The lung bases are clear. The heart size is remarkable for mild cardiomegaly. No pericardial or pleu ral effusion is present. No pneumothorax is present. The visualized liver is of normal size and attenuation. The gallbladder is not visualized which may be decompressed or status post cholecystectomy changes. The visualized spleen, pancreas, and bilater al adrenal glands are normal. A small hiatal hernia is present. The kidneys demonstrate bilateral renal cortical cysts which are incompletely evaluated on this nonc ontrast CT. The largest cyst measures 5 cm in the right mid pole of the kidney. No evidence for hydr oureteronephrosis or nephroureterolithiasis is present. The visualized aorta demonstrates vascular calcifications without evidence for aneurysmal dilatation . The visualized bowel is nonobstructive. No evidence for diverticulosis, diverticulitis or appendicit is is present. No evidence for retroperitoneal or pathologic lymphadenopathy is present. The visualized pelvis demonstrates marked prostatic enlargement which measures 5.6 cm AP by 6 cm in transverse dimensions. Moderate distension of the urinary bladder is present. No pelvic mass, lymphadenopathy, or free fluid is seen. There is no evidence of free air. The surrounding osseous structures are remarkable for generalized osteopenia. Degenerative changes a re present of the bilateral sacroiliac joints and the imaged spine. Grade 1 spondylolisthesis of L5 on S1 is present with bilateral L5 spondylolysis.. IMPRESSION: 1. No evidence for acute intra-abdominal or pelvic pathology. 2. Mild cardiomegaly and atherosclerotic vascular disease 3. Nonvisualized gallbladder 4. Bilateral renal cortical cysts as described. 5. Marked prostatic enlargement 5.6 cm AP by 6 cm transverse and correlate with prostate-specific a ntigen 6. Degenerative spondylosis of the imaged spine and grade 1 spondylolisthesis of L5 on S1 with bila teral L5 spondylolysis. RPTAT: HDC .Celeste Roper MD, Date Time Electronically viewed and signed by .Celeste Roper MD, on 01/26/2017 19:11 .C/
[2017-01-26 19:13] LABS: INR 1.05; PROTIME 13.7 Sec (12.2-14.2)
[2017-01-26] MEDS ORDERED: HYDR-902 PO (19:20)
[2017-01-26] MEDS ORDERED: ONDA4TAB14 PO (19:20)
--- NOTE | 2017-01-26 19:53 | ERD ---
ER Documentation Chief Complaint Chief Complaint SENT BY PCP FOR ABD PAIN W/ REBOUND TENDERNESS X 1 WK. NO N/V/D/FEVERS HPI Patient is a 76-year-old male with history of cardiac disease who presents with abdominal pain. He has right lower quadrant abdominal pain that has been going on for the past week. It is constant pain but it has worsened in intensity. There is no radiation. He has no urinary symptoms. He was sent by Dr. Mauricio his primary doctor for the abdominal pain and further workup. ROS All systems reviewed and are negative except as per history of present illness. Medications Home Meds Active Scripts Ondansetron (Ondansetron Odt) 4 Mg Tab.rapdis, 4 MG PO Q6H Y for NAUSEA AND/OR VOMITING, #10 TAB Prov:GUERO PALMER MD 01/26/17 Hydrocodone/Acetaminophen (Sabula 10-325 Tablet) 1 Each Tablet, 1 TAB PO Q6H Y for PAIN, #7 TAB Prov:GUERO PALMER MD 01/26/17 Omeprazole* (Omeprazole*) 20 Mg Capsule.dr, 20 MG PO DAILY, #30 CAP Prov:MAKENNA SLAUGHTER PA-C 07/25/16 Naproxen* (Naprosyn*) 500 Mg Tablet, 500 MG PO BID Y for PAIN AND/OR INFLAMMATION, #30 TAB Prov:MAKENNA SLAUGHTER PA-C 07/25/16 Hydrocodone/Acetaminophen (Sabula 5-325 Tablet) 1 Each Tablet, 1 TAB PO Q6H Y for PAIN, #20 TAB Prov:MAKENNA SLAUGHTER PA-C 07/25/16 Methylprednisolone* (Medrol* DOSE PACK) 4 Mg/Dose-Pack Tab.ds.pk, 4 MG PO . DIRECTED, #1 PACKET Prov:MAKENNA SLAUGHTER PA-C 07/25/16 Spironolactone* (Aldactone*) 25 Mg Tablet, 12.5 MG PO BID for 30 Days, TAB 3 Refills 1/2 tab po bid Prov:ANDREE BOLANOS 06/24/16 Lisinopril* (Lisinopril*) 5 Mg Tablet, 5 MG PO DAILY for 30 Days, TAB 3 Refills Prov:ANDREE BOLANOS 06/24/16 Furosemide (Lasix) 20 Mg Tab, 20 MG PO BID DIURETICS for 30 Days, TAB 3 Refills Prov:ANDREE BOLANOS 06/24/16 Aspirin (Aspirin) 81 Mg Chew, 81 MG PO DAILY for 30 Days, TAB Prov:KASSIE LONG 05/09/15 Reported Medications Atorvastatin Calcium* (Atorvastatin Calcium*) 20 Mg Tablet, 20 MG PO QHS, #30 TAB 06/21/16 Carvedilol* (Carvedilol*) 3.125 Mg Tablet, 3.125 MG PO BID, #60 TAB 06/21/16 Tramadol Hcl* (Ultram*) 50 Mg Tablet, 50 MG PO Q6H Y for PAIN, TAB 06/21/16 Lorazepam* (Lorazepam*) 1 Mg Tablet, 1 MG PO HS, #30 TAB 06/21/16 Allergies Allergies: Coded Allergies: No Known Allergy (Unverified , 07/25/16) PMhx/Soc Anesthesia Reaction: No Hx Neurological Disorder: No Hx Respiratory Disorders: No Hx Cardiac Disorders: Yes (HTN, CHF, RI) Hx Psychiatric Problems: No Hx Miscellaneous Medical Probl: Yes (Cardiomyopathy,STEMI/htn) Hx Alcohol Use: No Hx Substance Use: No Hx Tobacco Use: No Smoking Status: Never smoker FmHx Family History: No diabetes Physical Exam Vitals Vital Signs Date Time Temp Pulse Resp B/P Pulse Ox O2 Delivery O2 Flow Rate FiO2 01/26/17 18:05 98.3 78 18 117/55 97 Room Air 01/26/17 17:04 97.7 77 18 156/75 96 Physical Exam Const: Moderate distress secondary to abdominal pain Head: Atraumatic Eyes: Normal Conjunctiva ENT: Normal External Ears, Nose and Mouth. Neck: Full range of motion..~ No meningismus. Resp: Clear to auscultation bilaterally Cardio: Regular rate and rhythm, no murmurs Abd: Soft, right lower quadrant tenderness to palpation without rebound or guarding Skin: No petechiae or rashes Back: No midline or flank tenderness Ext: No cyanosis, or edema Neur: Awake and alert Psych: Normal Mood and Affect Result Diagram: 01/26/17 1742 01/26/171744 Results 24 hrs Laboratory Tests Test 01/26/17 17:41 01/26/17 17:45 Urine Color JOSE Urine Clarity CLEAR Urine pH 5.0 Urine Specific [place] 1.028 Urine Ketones NEGATIVEmg/dL Urine Nitrite NEGATIVEmg/dL Urine Bilirubin NEGATIVEmg/dL Urine Urobilinogen 1+mg/dL Urine Leukocyte Esterase NEGATIVELeu/ul Urine Microscopic RBC 4/HPF Urine Microscopic WBC 1/HPF Urine Mucus MANY/HPF Urine Hemoglobin 1+mg/dL Urine Glucose NEGATIVEmg/dL Urine Total Protein NEGATIVEmg/dl White Blood Count 4.110^3/ul Red Blood Count 4.4910^6/ul Hemoglobin 12.7g/dl Hematocrit 39.6% Mean Corpuscular Volume 88.2fl Mean Corpuscular Hemoglobin 28.3pg Mean Corpuscular Hemoglobin Concent 32.1g/dl Red Cell Distribution Width 13.5% Platelet Count 21457^3/UL Mean Platelet Volume 9.4fl Neutrophils % 56.1% Lymphocytes % 31.9% Monocytes % 10.3% Eosinophils % 1.0% Basophils % 0.5% Nucleated Red Blood Cells % 0.0/100WBC Neutrophils # 2.310^3/ul Lymphocytes # 1.310^3/ul Monocytes # 0.410^3/ul Eosinophils # 0.010^3/ul Basophils # 0.010^3/ul Nucleated Red Blood Cells # 0.010^3/ul Prothrombin Time 13.7Sec Prothrombin Time Ratio 1.1 INR International Normalized Ratio 1.05 Activated Partial Thromboplast Time 27.4Sec Sodium Level 146mmol/L Potassium Level 4.2mmol/L Chloride Level 108mmol/L Carbon Dioxide Level 26mmol/L Anion Gap 16 Blood Urea Nitrogen 13mg/dl Creatinine 0.88mg/dl Glucose Level 94mg/dl Calcium Level 9.7mg/dl Total Bilirubin 0.5mg/dl Direct Bilirubin 0.00mg/dl Indirect Bilirubin 0.5mg/dl Aspartate Amino Transf (AST/SGOT) 25IU/L Alanine Aminotransferase (ALT/SGPT) 39IU/L Alkaline Phosphatase 78IU/L Troponin I < 0.012ng/ml Total Protein 8.1g/dl Albumin 4.8g/dl Globulin 3.30g/dl Albumin/Globulin Ratio 1.45 Lipase 41U/L Current Medications Medications (Trade) Dose Ordered Sig/Rafiq Route PRN Reason Start Time Stop Time Status Last Admin Dose Admin Morphine Sulfate (morphine) 4 mg ONCE STAT IV 01/26/17 17:19 01/26/17 17:20 DC 01/26/17 17:55 Ondansetron HCl (Zofran Inj) 4 mg ONCE STAT IV 01/26/17 17:19 01/26/17 17:20 DC 01/26/17 17:54 Procedures/MDM PROCEDURE: CT abdomen and pelvis without contrast. CLINICAL INDICATION: Abdominal pain in the right lower quadrant TECHNIQUE: CT scan of the abdomen and pelvis without contrast was performed on a multislice CT scanner utilizing axial imaging from the lung bases through the pubis symphysis. The patient was scanned without intravenous contrast. Sagittal and coronal reformatted images were made. The CTDIvol is 19.49 mGy and the DLP is 1100.13 mGycm. One of the following 3 dose reduction techniques were used during this CT examination: 1) Automated exposure control 2) Adjustment of the mA +/- kV according to patient size or 3) Use of iterative reconstruction technique COMPARISON: None available FINDINGS: The lung bases are clear. The heart size is remarkable for mild cardiomegaly. No pericardial or pleural effusion is present. No pneumothorax is present. The visualized liver is of normal size and attenuation. The gallbladder is not visualized which may be decompressed or status post cholecystectomy changes. The visualized spleen, pancreas, and bilateral adrenal glands are normal. A small hiatal hernia is present. The kidneys demonstrate bilateral renal cortical cysts which are incompletely evaluated on this noncontrast CT. The largest cyst measures 5 cm in the right mid pole of the kidney. No evidence for hydroureteronephrosis or nephroureterolithiasis is present. The visualized aorta demonstrates vascular calcifications without evidence for aneurysmal dilatation. The visualized bowel is nonobstructive. No evidence for diverticulosis, diverticulitis or appendicitis is present. No evidence for retroperitoneal or pathologic lymphadenopathy is present. The visualized pelvis demonstrates marked prostatic enlargement which measures 5.6 cm AP by 6 cm in transverse dimensions. Moderate distension of the urinary bladder is present. No pelvic mass, lymphadenopathy, or free fluid is seen. There is no evidence of free air. The surrounding osseous structures are remarkable for generalized osteopenia. Degenerative changes are present of the bilateral sacroiliac joints and the imaged spine. Grade 1 spondylolisthesis of L5 on S1 is present with bilateral L5 spondylolysis.. IMPRESSION: 1. No evidence for acute intra-abdominal or pelvic pathology. 2. Mild cardiomegaly and atherosclerotic vascular disease 3. Nonvisualized gallbladder 4. Bilateral renal cortical cysts as described. 5. Marked prostatic enlargement 5.6 cm AP by 6 cm transverse and correlate with prostate-specific antigen 6. Degenerative spondylosis of the imaged spine and grade 1 spondylolisthesis of L5 on S1 with bilateral L5 spondylolysis. RPTAT: HDC .Celeste Roper MD, MD Date Time Electronically viewed and signed by .Celeste Roper MD, MD on 01/26/2017 19: 11 Chest x-ray shows no pneumonia or pneumothorax per radiology. Patient is a 76-year-old male who presents with abdominal pain. He had a full workup including laboratory studies, chest x-ray, and CT scan of the abdomen and pelvis. Laboratory studies are basically normal. CT scan shows no intra- abdominal surgical process. At this point I doubt cholecystitis, pancreatitis, appendicitis, or bowel obstruction. The patient was given copies of his laboratory studies and CAT scan report. The patient went to follow-up closely with his primary doctor tomorrow for reevaluation. He can return for any worsening symptoms. He will be given a prescription for Sabula and Zofran for symptomatic relief. He has mild hematuria and will need to have this followed up by his primary doctor. At this point there is no sign of urinary tract infection. The patient is 76 years old however and will need to have bladder cancer ruled out. This can be done as an outpatient. Departure Diagnosis: Primary Impression: Abdominal pain Abdominal location: right lower quadrant Qualified Code: R10.31 - Right lower quadrant abdominal pain Additional Impressions: Hematuria Hematuria type: unspecified type Qualified Code: R31.9 - Hematuria, unspecified type Anemia Anemia type: unspecified type Qualified Code: D64.9 - Anemia, unspecified type Condition: Fair Patient Instructions: Abdominal Pain Referrals: ARELY MAURICIO (PCP) Additional Instructions: FOLLOW UP WITH YOUR PRIMARY CARE PHYSICIAN TOMORROW.Return to this facility if you are not improving as expected. GUERO PALMER MD Jan 26, 2017 19:53
[2017-01-26 19:55] VITALS: BP 136/66; PULSE 61; RESP 18; TEMP 98
== END 2017-01-26 20:22 | disposition home or self-care (01) ==
LOC: E/R 16:57
DX: R10.31 Right lower quadrant pain (principal); R31.9 Hematuria, unspecified; D64.9 Anemia, unspecified; I10 Essential (primary) hypertension; I50.9 Heart failure, unspecified; Z79.82 Long term (current) use of aspirin
CPT/HCPCS: 36415; 71010; 74176; 80053; 81001; 83690; 84484; 85025; 85610; 85730; 93005; 96374; 96375; J2270; J2405; Z7502